=== PATIENT | female | born 1950 | race Caucasian/White ===

== ENCOUNTER 2018-12-06 21:17 | Emergency (ER) | payer MEDICARE ==
[~2018-12-06] VITALS: Ht 165.1 cm; Wt 88.2 kg
[2018-12-06] MEDS ORDERED: dexamethasone sod phosphate 10mg/ml inj IV STA (21:52)
[2018-12-06] MEDS ORDERED: normal saline 1000ML IV soln IVB ONE (21:55)
[2018-12-06 22:09] LABS: BASOPHILS # (AUTO) 0.1 X10'3 (0-0.2); BASOPHILS % (AUTO) 0.6 % (0-1); EOSINOPHILS # (AUTO) 0.2 X10'3 (0-0.9); EOSINOPHILS % (AUTO) 2.5 % (0-6); HEMATOCRIT 40.6 % (35.0-45.0); HEMOGLOBIN 13.9 g/dl (12.0-16.0); LYMPHOCYTES # (AUTO) 3.2 X10'3 (1.1-4.8); LYMPHOCYTES % (AUTO) 34.4 % (21-51); MEAN CORPUSCULAR HEMOGLOBIN 33.8 PG (27.0-31.0); MEAN CORPUSCULAR HGB CONC 34.2 g/dL (33.0-36.5); MEAN CORPUSCULAR VOLUME 98.9 FL (78-98); MEAN PLATELET VOLUME 9.2 FL (7.4-10.4); MONOCYTES # (AUTO) 0.7 X10'3 (0-0.9); NEUTROPHILS # (AUTO) 5.1 X10'3 (1.8-7.7); NEUTROPHILS % (AUTO) 54.5 % (42-75); PLATELET COUNT 222 X10'3 (140-440); RED BLOOD COUNT 4.11 X10'6 (4.20-5.60); RED CELL DISTRIBUTION WIDTH 12.1 % (11.5-14.5); WHITE BLOOD COUNT 9.3 X10'3 (4.5-11.0)
[2018-12-06 22:25] LABS: ALANINE AMINOTRANSFERASE 25 U/L (12-78); ALBUMIN 3.6 G/DL (3.4-5.0); ALBUMIN/GLOBULIN RATIO 0.9 (1.1-1.5); ALKALINE PHOSPHATASE 71 IU/L (46-116); ANION GAP 9 (8-16); ASPARTATE AMINO TRANSFERASE 15 U/L (10-37); BILIRUBIN,TOTAL 0.2 MG/DL (0.1-1.0); BLOOD UREA NITROGEN 12 MG/DL (7-18); BUN/CREATININE RATIO 16.7 (6.6-38.0); CALCIUM 8.9 MG/DL (8.5-10.1); CHLORIDE 102 MMOL/L (99-107); CREATININE 0.72 MG/DL (0.40-0.90); GLUCOSE 130 MG/DL (70-104); POTASSIUM 3.5 MMOL/L (3.5-5.1); SODIUM 139 MMOL/L (135-145); TOTAL CARBON DIOXIDE 27.7 MMOL/L (24-32); TOTAL PROTEIN 7.4 G/DL (6.4-8.2); eGFR 81 ML/MIN
[2018-12-06] MEDS ORDERED: iohexol 300mg/ml 100ml inj. ONE (22:45)
--- NOTE | 2018-12-07 00:19 | NUR ---
[employer] flight crew at bedside for transfer. Report given to flight medic Simran.
[2018-12-07 00:25] VITALS: BP 122/79
== END 2018-12-07 00:33 | disposition short-term general hospital (02) ==
LOC: ER 21:17
DX: R22.1 Localized swelling, mass and lump, neck (principal); C32.9 Malignant neoplasm of larynx, unspecified; R06.03 Acute respiratory distress; F17.210 Nicotine dependence, cigarettes, uncomplicated; G89.29 Other chronic pain; Z88.5 Allergy status to narcotic agent; R06.00 Dyspnea, unspecified
CPT/HCPCS: 36415; 70491; 80053; 85025; 93005; 96374; 99285; J1100; J7030; Q9967; 96361

== ENCOUNTER 2019-03-23 17:19 | Emergency (ER) | payer MEDICARE ==
[~2019-03-23] VITALS: Ht 165.1 cm; Wt 91.0 kg
--- NOTE | 2019-03-23 17:34 | NUR ---
dr george was informed about pt recent procedure transesophageal voice procedure done at [facility] now pt unable to eat drink and cough alot as per rn fe who triage the pt ,rt paged for the pt .
--- NOTE | 2019-03-23 17:40 | NUR ---
rt at bedside with dr george.
[2019-03-23] MEDS ORDERED: normal saline 1000ML IV soln IVB ONE (18:45)
[2019-03-23] MEDS ORDERED: DOXY100C43 PO (19:16)
[2019-03-23 19:49] VITALS: BP 112/86
== END 2019-03-23 19:51 | disposition home or self-care (01) ==
LOC: ER 17:20
DX: T85.591A Other mechanical complication of esophageal anti-reflux device, initial encounter (principal); G89.29 Other chronic pain; E86.0 Dehydration; Z88.5 Allergy status to narcotic agent; Z79.899 Other long term (current) drug therapy; Y83.8 Other surgical procedures as the cause of abnormal reaction of the patient, or of later complication, without mention of misadventure at the time of the procedure; Y92.89 Other specified places as the place of occurrence of the external cause
CPT/HCPCS: 99283; J7030

== ENCOUNTER 2019-05-16 00:42 | Emergency (ER) | payer MEDICARE ==
[~2019-05-16] VITALS: Ht 165.1 cm; Wt 100.0 kg
--- NOTE | 2019-05-16 01:12 | NUR ---
DR OBRIEN AT BEDSIDE TO EVAL PT, PT IS RESTING QUIETLY, NO RESP DISTRESS
--- NOTE | 2019-05-16 01:31 | NUR ---
DR OBRIEN TO CONSULT WITH ENT AT [facility]
[2019-05-16] MEDS ORDERED: LEVO750T21 PO (02:27)
[2019-05-16 02:40] VITALS: BP 117/68
== END 2019-05-16 02:38 | disposition home or self-care (01) ==
LOC: ER 00:43
DX: J18.9 Pneumonia, unspecified organism (principal); G89.29 Other chronic pain; Z90.02 Acquired absence of larynx; Z88.5 Allergy status to narcotic agent
CPT/HCPCS: 74022; 99283

== ENCOUNTER 2025-03-05 15:05 | Inpatient (IN) | payer MEDICARE ==
[~2025-03-05] VITALS: Ht 170.2 cm; Wt 86.0 kg
--- NOTE | 2025-03-05 15:18 | Physician Documentation ---
History of Present Illness General Stated Complaint: WEAKNESS Time Seen by MD: 15:17 Primary Medical Doctor: Saira Hernandez History of Present Illness Initial Comments The patient is a 74-year-old female with a history of a trach who was brought in from home for weakness dyspnea and green sputum coming from her trach. The patient states she has been weak over the last 24 hours. The patient is denying any history of GI bleed. She denies any fevers or chills. She denies any abdominal pain. Patient was brought in by EMS and found to be hypoxic in the field. Patient has a history of hypertension and diabetes. The patient had a history of throat cancer and had a trach placed in 2019. Medication Reconciliation Allergies: Coded Allergies: codeine (Verified Allergy, Severe, 03/05/25) Miscellaneous Medications Home Med List (No Home Medications), (Reported) Past Medical History Past Medical History: Chronic Pain, *CANCER* Past Surgical History: no surgical history Alcohol Use: None Drug Use: none Lives In: Home Review of Systems All Other Systems at this time: Reviewed and Negative Physical Exam Physical Exam Physical Exam VITALS: Reviewed and as above. GENERAL: Alert, mild respiratory distress pale chronically ill-appearing HEENT: Normocephalic, atraumatic, PERRL, EOMI, dry mucosa, no erythema the patient has a tracheal stoma the stoma site is clean with no surrounding erythema warmth or swelling RESPIRATORY: Diminished breath sounds in the right side with crackles, mild respiratory distress. CHEST: No accessory muscle use, no retractions CV: Tachycardic irregularly irregular, rhythm, no edema, no murmur, No: JVD GI: Soft, non-tender, bowels sounds present, no rebound, guarding, or rigidity BACK: No CVA tenderness, or swelling MUSCULOSKELETAL: No deformities, 2+ pitting edema bilaterally SKIN: Warm and dry, no rash pale NEURO: Oriented x4, No motor or sensory deficit PSYCH: Normal mood and affect, no agitation Progress Results/Orders Results/Orders Orders - OHLMICHELE HOGAN MD Culture Blood (03/05/25 15:26) Chest,Single View (03/05/25 15:26) Transfusion Informed Consent (03/05/25 15:43) Potassium Cl Sr Tablet (K-Dur Tablet) (03/05/25 15:55) Potassium Cl Sr Tablet (K-Dur Tablet) (03/05/25 15:55) Magnesium Cl Er Tablet (Slow-Mag Tablet) (03/05/25 15:55) Magnesium Sulf-Water 2g/50ml (Magnesium (03/05/25 15:55) Magnesium Sulf-Water 4g/100ml (Magnesium (03/05/25 15:55) Potassium Cl 40meq/1/2ns 520ml ([place] (03/05/25 15:55) K And/Or Mag Replacement (K And/Or Mag R (03/05/25 20:00) Transfusion Informed Consent (03/05/25 15:58) Completed Orders - OHLFS,MICHELE Powers MD Electrocardiogram (03/05/25 15:26) Cbc/Diff (03/05/25 15:) MG (03/05/25 15:26) Chest,Single View (03/05/25 15:26) Procalcitonin (03/05/25 15:26) BMP (03/05/25 15:26) Lacticsepsis (03/05/25 15:26) Normal Saline 1000ml (0.9% Sodium Chlori (03/05/25 15:30) Type And Screen (03/05/25 15:43) Normal Saline 1000ml (0.9% Sodium Chlori (03/05/25 15:50) Lrpc - No Active Bleeding (03/05/25 15:58) Hs Troponin I W Calculations (03/05/25 16:08) Hs Troponin I W Calculations (03/05/25 18:08) Hs Troponin I W Calculations (03/05/25 19:08) Vancomycin*Pharmacy To Dose* (Vancomycin (03/05/25 16:10) Cefepime 1gm In D5w 50ml (Cefepime 1gm/D (03/05/25 16:10) Vancomycin/H2o 1.5g/300ml Pb (Vancomycin (03/05/25 16:20) PBNP (03/05/25 15:21) PHOS (03/05/25 15:21) Ua W/Microscopic, Cult If Ind (03/05/25 21:20) Vital Signs 03/05/25 03/05/25 03/05/25 15:10 15:26 15:31 Temp 98.2 Pulse 106 102 Resp 22 24 22 B/P (MAP) 89/64 104/63 (77) Pulse Ox 96 97 O2 Flow Rate 10.0 10.0 Laboratory Tests Test 03/05/25 15:21 03/05/25 15:59 White Blood Count 8.2 Red Blood Count 2.11 L Hemoglobin 6.6 *L Hematocrit 19.0 *L Mean Corpuscular Volume 89.8 Mean Corpuscular Hemoglobin 31.0 Mean Corpuscular Hemoglobin Concent 34.6 Red Cell Distribution Width 15.1 H Platelet Count 658 H Mean Platelet Volume 7.1 L Neutrophils (%) (Auto) 81.9 H Lymphocytes (%) (Auto) 12.8 L Monocytes (%) (Auto) 4.9 Eosinophils (%) (Auto) 0.1 Basophils (%) (Auto) 0.3 Neutrophils # (Auto) 6.8 Lymphocytes # (Auto) 1.1 Monocytes # (Auto) 0.4 Eosinophils # (Auto) 0.0 Basophils # (Auto) 0.0 CBC Comment Platelet Estimate Increased Red Blood Cell Morphology Perf Hypochromasia 3+ Poikilocytosis 1+ Basophilic Stippling Anisocytosis 2+ Microcytosis 1+ Sodium Level 150 H Potassium Level 1.3 *L Chloride Level 102 Carbon Dioxide Level 35.2 H Anion Gap 13 Blood Urea Nitrogen 31 H Creatinine 2.76 H Estimated GFR/1.73 m2 17 BUN/Creatinine Ratio 11.2 Glucose Level 121 H Calcium Level 7.0 L Phosphorus Level 2.8 Magnesium Level 0.8 *L Troponin I High Sensitivity 52 *H Pro-B-Type Natriuretic Peptide 35882 H Albumin 1.5 L Procalcitonin 0.28 Chemistry Comments Lactic Acid Level 1.1 Microbiology Date/Time Source Procedure Growth Status 03/05/25 15:59 Blood Arm Right Blood Culture - Preliminary NO GROWTH AFTER 1 DAY Resulted Medical Decision Making Findings The patient is a chronically ill-appearing 74-year-old female who came into the emergency department with a complaint of weakness. The patient was found to be significantly anemic and edematous. The patient's electrolytes are extremely abnormal with a extremely low potassium of 1.3 and an extremely low magnesium of 0.8. The patient was consented for a transfusion and she was typed and crossed for 1 unit of packed red blood cells. The patient has been monitored closely utilizing the monitoring coordinator which demonstrated atrial fibrillation which appears to be a new finding for this patient. The patient's potassium and magnesium are being repleted. The patient's prior hospitalizations have been reviewed the patient's pulse oximetry has been interpreted as normal and adequate. The patient has been discussed with the incidents of care physician. The patient will be admitted to the intensive care. The patient additionally presents with green sputum from her trachea she has what appears to have bilateral opacities in the lung harmon and clinical pneumonia. She was been treated with cefepime and vancomycin. She also has what appears to be new renal failure and she has been treated with gentle IV hydration. Departure Admitted to Inpatient Unit: yes, to hospitalist Impression: Primary Impression: Hypokalemia Additional Impressions: Anemia Qualified Codes: D64.9 - Anemia, unspecified Acute kidney injury Pneumonia Qualified Codes: J18.9 - Pneumonia, unspecified organism Referrals: NO PRIMARY CARE PROVIDER (PCP) Signature Scribe Signature: no scribe Attestation: The note accurately reflects work and decisions made by me.Michele Hough MD 03/07/25 10:02 MICHELE HOUGH MD Mar 05, 2025 15:18
[2025-03-05] MEDS: normal saline 1000ML IV soln IVB ONE ×2 (15:34→16:19)
[2025-03-05 15:37] LABS: MEAN PLATELET VOLUME 7.1 FL (7.4-10.4); RED CELL DISTRIBUTION WIDTH 15.1 % (11.5-14.5)
--- NOTE | 2025-03-05 15:43 | ELECTROCARDIOGRAPH REPORT ---
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
[2025-03-05 15:51] LABS: CREATININE 2.76 MG/DL (0.40-0.90); TOTAL CARBON DIOXIDE 35.2 MMOL/L (24-32); eCRCL 18 ML/MIN; eGFR 17 ML/MIN
[2025-03-05] MEDS ORDERED: magnesium sulf-water 2g/50mL 50 ML IV PRN (15:55)
[2025-03-05] MEDS ORDERED: magnesium Cl slow-release 64mg tablet PO PRN (15:55)
[2025-03-05] MEDS ORDERED: potassium Cl 20 mEq SR tablet PO PRN ×2 (15:55)
--- NOTE | 2025-03-05 15:58 | RADIOLOGY REPORT ---
CHEST RADIOGRAPH Indication: SEPSIS Technique: Single frontal view of the chest was obtained COMPARISON: None FINDINGS: Lines and Tubes: None Lungs: Congestion Pleura: Small right pleural effusion No pneumothorax. Cardiomediastinal contours: Cardiomegaly Bones: Unremarkable IMPRESSION: Increased interstital prominence. This may represent pulmonary vascular congestion and/or viral pneumonia. Small right pleural effusion. Clinical correlation advised.
[2025-03-05 16:14] LABS: PLATELET ESTIMATE INCREASED
[2025-03-05] MEDS: magnesium sulf-water 4G/100mL 100 ML IV PRN (16:18)
[2025-03-05] MEDS: potassium Cl 40MEQ/1/2NS 520ml 520 ML IV PRN (16:24)
[2025-03-05] MEDS: cefepime 1GM in D5W 50mL 50 ML IV ONE (16:24)
[2025-03-05] MEDS: VANCOMYCIN/WATER FOR INJ (PEG) 1.5GM/300 ML IVPB IV ONE (16:42)
[2025-03-05 16:43] LABS: PHOSPHORUS 2.8 MG/DL (2.3-4.5); PRO BRAIN NATRIURETIC PEPTIDE 12917 PG/ML (0-125)
[2025-03-05] MEDS ORDERED: ondansetron/PF 4mg/2ml inj IV PRN (17:00)
[2025-03-05] MEDS: ringers solution, lacted 1,000 ML IV SCH (17:00)
[2025-03-05] MEDS ORDERED: magnesium hydroxide 30ml (MOM) UD suspension PO PRN (17:00)
[2025-03-05] MEDS ORDERED: morphine 4 MG/ML inj SYRINge IV PRN ×2 (17:00)
--- NOTE | 2025-03-05 17:08 | HISTORY AND PHYSICAL ---
History of Present Illness End CC ~ Admission Diagnosis:.: PNA History of Present Illness H/O Throat CA with previous Tracheostomy c/o weakness. Increased yellowish sputum noticed from trach site. Pt anemic however no obvious source of bleeding noticed. Severe Hypokalemia/Hypomagnesemia. Allergies: Coded Allergies: codeine (Verified Allergy, Severe, 03/05/25) Home Medications Home Medications Active Past Medical History Past Medical History: Chronic Pain, *CANCER* Past Surgical History Past Surgical History: no surgical history Past Social History Alcohol Use: None Drug Use: None Lives In: Home Advance Care Planning Advanced Care plannin - 30 Minutes Review of Systems All Other Systems at this time: Reviewed and Negative Unable to obtain complete ROS: other (Non-verbal) Physical Exam Last Vital Signs recorded: Temperature: 98.2, Source: Oral, Heart Rate: 102, Respiratory Rate: 22, BP: 104/63, Pulse Oximetry: 97, Weight: 69.000 General Appearance: mild distress EENT: PERRL/EOMI Neck: supple Respiratory: decreased breath sounds, rhonchi Cardiovascular: regular rate, rhythm Peripheral Pulses: 1+ carotid (R), 1+ carotid (L), 1+ radial (R), 1+ radial (L), 1+ femoral (R), 1+ femoral (L), 1+ dorsalis pedis (R), 1+ dorsalis pedis (L), 1+ posterior tib (R), 1+ posterior tib (L), 1+ other Gastrointestinal: bowels sounds present Extremities: edema Neurologic: unable to test Skin: pallor Results Diagram Lab Result Diagram: 03/05/25 1521 03/05/25 1521 Assessment/Plan 1-Sepsis due to Bacterial/Aspiration PNA -Broad spectrum abx -Bronchoscopy -F/U cultures 2-Renal Failure -F/U BMP -Avoid nephrotoxic drugs 3-Anemia -F/U Hgb Devin Barton CC time 35min IRAIDA BARTON MD Mar 05, 2025 17:08
[2025-03-05 17:30] VITALS: BP 106/75; PULSE 109; RESP 24; TEMP 99.4
[2025-03-05 17:52] VITALS: BP 98/57; PULSE 95; RESP 20; TEMP 99.4
[2025-03-05 18:09] VITALS: BP 102/59; PULSE 92; RESP 18; TEMP 99.4
[2025-03-05 18:41] VITALS: BP 122/63; PULSE 87; RESP 17; TEMP 98.1
[2025-03-05 20:00] VITALS: BP 99/47; PULSE 100; RESP 21; TEMP 98.1
[2025-03-05] MEDS: K and/or MAG REPLACEMENT MC SCH (20:00)
[2025-03-05 21:46] LABS: LEUKOCYTE ESTERASE ,URINE SMALL (Neg); NITRITES, URINE NEGATIVE (Neg); OCCULT BLOOD,URINE LARGE (Neg)
[2025-03-05 21:53] LABS: UA COLLECTION TYPE FOLEY CATH
[2025-03-05 21:56] LABS: HYALINE CASTS 0-3 /LPF (NEGATIVE); SQUAMOUS EPITHELIAL CELL,UR FEW /LPF (FEW)
[2025-03-05] MEDS: NORepinephrine 8mg/ 250ml NS 250 ML IV SCH (23:40)
[2025-03-05] MEDS: heparin, porcine 5000 units/ml vial SQ SCH (23:59)
[2025-03-05] MEDS: piperacillin/tazo 3.375gm/50ml 50 ML IV SCH (23:59)
[2025-03-06] VITALS (9 sets, daily range): BP systolic 98–122; BP diastolic 48–71; PULSE 75–95; RESP 16–26; TEMP 97.8–99; O2SAT 95
[2025-03-06 02:05] LABS: MEAN PLATELET VOLUME 7.3 FL (7.4-10.4)
[2025-03-06 02:06] LABS: RED CELL DISTRIBUTION WIDTH 15.3 % (11.5-14.5)
[2025-03-06 02:18] LABS: CREATININE 2.44 MG/DL (0.40-0.90); PHOSPHORUS 3.8 MG/DL (2.3-4.5); TOTAL CARBON DIOXIDE 34.2 MMOL/L (24-32); eCRCL 20 ML/MIN; eGFR 19 ML/MIN
[2025-03-06 02:52] LABS: PRO BRAIN NATRIURETIC PEPTIDE 10774 PG/ML (0-125)
[2025-03-06 03:30] LABS: APTT 28 SECONDS (22-32); INR 1.2 INR
--- NOTE | 2025-03-06 04:04 | Physician Documentation ---
Procedures Procedures Central line insertion Additional Procedures Procedure Note Central Line: Right femoral Performed by: Juanpablo Rea DO Authorized by:Juanpablo Rea DO Consent: Verbal consent obtained. The procedure was performed in an emergent situation. Risks and benefits: risks, benefits and alternatives were discussed Consent given by: patient Patient understanding: patient states understanding of the procedure being performed Patient consent: the patient's understanding of the procedure matches consent given Procedure consent: procedure consent matches procedure scheduled Patient identity confirmed: verbally with patient and arm band Time out: Immediately prior to procedure a "time out" was called to verify the correct patient, procedure, equipment, manager decision support and site/side marked as required. Indications: vascular access and central pressure monitoring Anesthesia: local infiltration Local anesthetic: lidocaine 1% with epinephrine Anesthetic total: 4 ml Preparation: skin prepped with 2% chlorhexidine Skin prep agent dried: skin prep agent completely dried prior to procedure Sterile barriers: all five maximum sterile barriers used - cap, mask, sterile gown, sterile gloves, and large sterile sheet Hand hygiene: hand hygiene performed prior to central venous catheter insertion Location details: right internal jugular Patient position: Trendelenburg Catheter type: Quadruple lumen Pre-procedure: landmarks identified Ultrasound guidance: yes Number of attempts: 1 Successful placement: yes Post-procedure: line sutured and dressing applied Assessment: blood return through all parts, free fluid flow, placement verified by x-ray and no pneumothorax on x-ray Patient tolerance: Patient tolerated the procedure well with no immediate complications. Additional Comment Additional Comment Central line was requested by the dobby looms pegger, Dr. Franklin. Signature Scribe Signature: No scribe Attestation: Date: Mar 06, 2025 Time: 04:04 This note accurately reflects clinical decisions, work performed by myself, DO MASTER Tan NICHOLAS M DO Mar 06, 2025 04:04
[2025-03-06] MEDS ORDERED: potassium Cl 20 mEq SR tablet PO STA (04:36)
[2025-03-06] MEDS: POTASSIUM CHLORIDE 20 MEQ/15 ML oral solution PO STA (05:10)
[2025-03-06 05:35] LABS: MEAN PLATELET VOLUME 7.1 FL (7.4-10.4); RED CELL DISTRIBUTION WIDTH 16.0 % (11.5-14.5)
--- NOTE | 2025-03-06 05:48 | RADIOLOGY REPORT ---
EXAM: DI CHEST,SINGLE VIEW HISTORY: infiltrate COMPARISON: DI CHEST,SINGLE VIEW on DOS: 03/05/25 TECHNIQUE: Portable upright AP view of the chest was performed. FINDINGS: There is complete opacification of the right hemithorax, with worsening compared with chest x-ray performed 1 day earlier. There is mild interstitial prominence in the left lung. No pneumothorax. The right heart border is obscured. The aortic arch is calcific. There are surgical clips in the base of the neck. IMPRESSION: 1. Complete opacification of the right hemithorax likely due to a combination of lung consolidation and pleural effusion. This may be better characterized with contrasted CT scan of the chest. 2. Mild interstitial prominence in the left lung, stable.
[2025-03-06 05:51] LABS: CREATININE 2.35 MG/DL (0.40-0.90); TOTAL CARBON DIOXIDE 33.4 MMOL/L (24-32); eCRCL 21 ML/MIN; eGFR 20 ML/MIN
[2025-03-06] MEDS: calcium gluconate inj. 2 GM in normal saline 100ml IV soln 100 ML IV ONE ×2 (06:00→06:28)
[2025-03-06] MEDS: CALCIUM GLUC 1gm/50ml NACL,iso 50 ML IV ONE ×2 (06:27→06:28)
[2025-03-06] MEDS: ringers solution, lacted 1,000 ML IV ONE ×2 (06:28→12:20)
[2025-03-06] MEDS ORDERED: CALCIUM GLUC 1gm/50ml NACL,iso 50 ML IV SCH (06:48)
--- NOTE | 2025-03-06 07:03 | PROGRESS NOTE ---
Progress Note Dictate Providers to CC ~ Progress Note: Ongoing PRBC transfusion.Pressors initiated for few hours, now off Central Line/PICC still needed: N\A Perez Indications Met/Not Met: F/C Indications Not Met Antibiotic Ordered?: Yes Subjective Subjective Comfortable Objective Vitals Vital Signs Date Time Temp Pulse Resp B/P (MAP) Pulse Ox O2 Delivery O2 Flow Rate FiO2 03/06/25 06:56 98.7 75 20 110/67 03/06/25 04:32 94 10.0 Lab Results: 03/06/25 0517 03/06/25516 Objective Heart: S1-2 reg Lungs: Decrease BS bases R>L Abdomen: soft, non-tender, BS (+) Ext: Edema Neuro: awake Coagulation Studies Laboratory Tests Test 03/06/25 03:06 Prothrombin Time 12.5 SECONDS (9.0-12.0) H INR International Normalized Ratio 1.2 INR Activated Partial Thromboplast Time 28 SECONDS (22-32) Coagulation Comments Problem\Assessment\Plan Additional Plan 1-Sepsis due to Bacterial/Aspiration PNA + UTI -Broad spectrum abx -Bronchoscopy -F/U cultures 2-Renal Failure -F/U BMP -Avoid nephrotoxic drugs 3-Anemia -F/U Hgb 4-PAF -Amiodarone ongoing A Oralia Sepsis Screening Reassessment Date: Mar 06, 2025 IRAIDA HALL MD Mar 06, 2025 07:03
[2025-03-06] MEDS ORDERED: pantoprazole 40mg Tablet.DR PO SCH (07:30)
[2025-03-06] MEDS: pantoprazole 40MG/NS 100ML BAG 100 ML IV SCH (08:55)
[2025-03-06 09:31] LABS: MEAN PLATELET VOLUME 7.1 FL (7.4-10.4); RED CELL DISTRIBUTION WIDTH 16.3 % (11.5-14.5)
[2025-03-06 09:36] LABS: CREATININE 2.32 MG/DL (0.40-0.90); TOTAL CARBON DIOXIDE 30.5 MMOL/L (24-32); eCRCL 21 ML/MIN; eGFR 21 ML/MIN
[2025-03-06] MEDS: Potassium Cl inj 40 MEQ in sodium chloride 0.45% 500ml 500 ML IV ONE ×2 (09:45→15:52)
[2025-03-06] MEDS ORDERED: POTASSIUM CHLORIDE 20 MEQ/15 ML oral solution PO SCH (09:45)
[2025-03-06] MEDS: POTASSIUM CHLORIDE 20 MEQ/15 ML oral solution PO ONE ×2 (10:16→15:42)
[2025-03-06] MEDS: magnesium sulf-water 4G/100mL 100 ML IV ONE (10:48)
[2025-03-06] MEDS ORDERED: NO HOME MEDS (10:58)
[2025-03-06] MEDS: fentaNYL/PF 50MCG/1 ML 2ML syringe IV ONE (11:19)
[2025-03-06] MEDS: midazolam 1 mg/ML 2ml injection IV ONE (11:20)
[2025-03-06] MEDS: LIDOCAINE 4% (40MG/ML) topical solution 50ml **BRONCH ONLY ONE (11:58)
--- NOTE | 2025-03-06 12:10 | PROCEDURE NOTE CC ---
Procedure Note CC Providers to CC ~ Procedure Name: Bronchoscopy Description: Indication: R-side atelectasis Sedation: Versed 2mgr + Fentanyl 25mcgr Description: Bronchoscope introduced via Trach stoma. L-side with minimal thick secretion and nl mucosa R-side with thick yellowish secretion. BAL performed and sample sent to lab Complication: None Sepsis Screening Reassessment Date: Mar 06, 2025 IRAIDA HALL MD Mar 06, 2025 12:10
[2025-03-06] MEDS ORDERED: Potassium Cl inj 40 MEQ in normal saline 500ml IV soln 500 ML IV ONE (15:10)
[2025-03-06] MEDS ORDERED: Potassium Cl inj 40 MEQ in sodium chloride 0.45% 500ml 500 ML IV ONE (15:28)
[2025-03-06 15:59] LABS: PHOSPHORUS 3.5 MG/DL (2.3-4.5)
--- NOTE | 2025-03-06 19:19 | PROGRESS NOTE ---
Daily Progress Note Providers to CC ~ Antibiotic Timeout Antibiotic Ordered?: Yes Subjective Patient is step-down patient from Dr. Barton for PCU today . Patient has severe anemia, hypokalemia, hypomagnesemia mildly elevated troponin BNP 1 0774. Patient was on norepinephrine drip in ER 6. Dr. Fitzpatrick did bronchoscopy today. Patient is admitted for sepsis due to bacterial/aspiration pneumonia plus UTI currently on IV antibiotics. Patient also has acute renal failure, anemia in paroxysmal atrial fibrillation. Objective Vital Signs Date Time Temp Pulse Resp B/P (MAP) Pulse Ox O2 Delivery O2 Flow Rate FiO2 03/06/25 18:20 88 20 120/71 (87) 98 11.0 03/06/25 17:58 97.0 03/06/25 17:46 Cool/Heated Aerosol Mist+ 100 Result Diagram: 03/06/25 0914 03/06/25 1427 General-patient not in any acute distress, awake chronically ill-appearing, responded well to verbal commands HEENT-atraumatic normocephalic, neck supple without elevated JVD, no thyromegaly or carotid bruit. No lymphadenopathy bilaterally.no erythema the patient has a tracheal stoma the stoma site is clean with no surrounding erythema warmth or swelling Eyes-no icterus or pallor seen in eyes Chest-coarse breath sounds to auscultation bilaterally, breathing nonlabored no tachypnea, Heart-S1-S2 normal, regular heart rate no murmur Abdomen bowel sounds positive on auscultation, soft nondistended nontender no guarding, no rigidity Skin no active skin rash, bruise present over right arm Neurology-grossly intact, nonfocal alert awake oriented Extremity- 1 plus pedal edema , not able to move all 4 extremities/ambulate Psychiatry - patient is not confused or agitated cooperated during physical examination Coagulation Studies Laboratory Tests Test 03/06/25 03:06 Prothrombin Time 12.5 SECONDS (9.0-12.0) H INR International Normalized Ratio 1.2 INR Activated Partial Thromboplast Time 28 SECONDS (22-32) Coagulation Comments Problem\Assessment\Plan Patient is 74-year-old female with history of Chronic Pain, history of hypertension and diabetes.*CANCER*History of laryngectomy. patient had a history of throat cancer and had a trach placed in 2019. As per ER record. history of a trach who was brought in from home for weakness dyspnea and green sputum coming from her trach. The patient states she has been weak over the last 24 hours. Patient is step-down patient from Dr. Barton for PCU today . Patient has severe anemia, hypokalemia, hypomagnesemia mildly elevated troponin BNP 1 0774. Patient was on norepinephrine drip in ER 6. Dr. Fitzpatrick did bronchoscopy today. Patient is admitted for sepsis due to bacterial/aspiration pneumonia plus UTI currently on IV antibiotics. Patient also has acute renal failure, anemia in paroxysmal atrial fibrillation. All labs and diagnostic and care plan workup reviewed. We will continue to monitor patient's labs and vitals closely . Further management depending on response to treatment . As per Dr. Fitzpatrick tangled yarn worker team we will continue to follow the patient in PCU. I will continue to follow patient in a.m. Date of Service: Mar 06, 2025 Billing Provider: BAL GALAN MD Common Visit Codes: [id number] INP/OBS CARE(MOD) BAL GALAN MD Mar 06, 2025 19:19
[2025-03-06 20:19] LABS: % IRON SATURATION 34 % (11-46)
[2025-03-06 23:47] LABS: MEAN PLATELET VOLUME 7.5 FL (7.4-10.4); RED CELL DISTRIBUTION WIDTH 17.5 % (11.5-14.5)
[2025-03-07] VITALS (35 sets, daily range): BP systolic 62–138; BP diastolic 33–69; PULSE 62–130; RESP 11–26; O2SAT 84–100
[2025-03-07] MEDS: albuterol 2.5 MG/3 ML nebule NEB SCH ×2 (08:03→11:26)
--- NOTE | 2025-03-07 08:52 | RADIOLOGY REPORT ---
CHEST RADIOGRAPH Indication: infiltrate Technique: Single frontal view of the chest was obtained COMPARISON: DI CHEST,SINGLE VIEW on DOS: 03/06/25, DI CHEST,SINGLE VIEW on DOS: 03/05/25 FINDINGS: Lines and Tubes: None Lungs: Increased multifocal airspace disease in the left lung. Improved aeration of the right lung. Pleura: Moderate right pleural effusion. No pneumothorax. Cardiomediastinal contours: Unremarkable Bones: Unremarkable IMPRESSION: Increased multifocal airspace disease in the left lung. Improved aeration of the right lung. Moderate right pleural effusion.
[2025-03-07] MEDS: albuterol 2.5 MG/3 ML nebule NEB PRN (09:27)
[2025-03-07] MEDS ORDERED: vancomycin/NS 1 GM ADD-VANTAGE 250 ML IV ONE (10:00)
[2025-03-07] MEDS: midazolam 1 mg/ML 2ml injection IV ONE (11:19)
[2025-03-07] MEDS: fentaNYL/PF 50MCG/1 ML 2ML syringe IV ONE (11:19)
[2025-03-07] MEDS ORDERED: fentaNYL/PF 50MCG/1 ML 2ML syringe IV PRN (11:20)
[2025-03-07 11:21] LABS: MEAN PLATELET VOLUME 7.2 FL (7.4-10.4); RED CELL DISTRIBUTION WIDTH 17.7 % (11.5-14.5)
[2025-03-07] MEDS: fentaNYL/PF 50MCG/1 ML 2ML syringe ONE (11:21)
[2025-03-07] MEDS: midazolam 1 mg/ML 2ml injection ONE (11:21)
[2025-03-07 11:37] LABS: CREATININE 2.26 MG/DL (0.40-0.90); PHOSPHORUS 4.3 MG/DL (2.3-4.5); TOTAL CARBON DIOXIDE 33.0 MMOL/L (24-32); eCRCL 22 ML/MIN; eGFR 21 ML/MIN
[2025-03-07] MEDS: propofol 1000mg/100ml bottle 100 ML IV SCH (11:39)
[2025-03-07] MEDS: FENTANYL-0.9 % NACL/PF 100 ML IV SCH (11:43)
[2025-03-07 11:47] LABS: ABG BASE EXCESS 2.8 mmol/L (-2.0-3.0); ABG HCO3 28.6 mmol/L (21.0-28.0); ABG OXYGEN SATURATION 100.0 % (94.0-98.0); ABG PCO2 (T) 49.9 mmHg (32.0-45.0); ABG PH (T) 7.373 (7.350-7.450); ABG PO2 (T) 217.8 mmHg (83.0-108.0); ALLEN'S TEST POSITIVE; FCOHb 1.6 % (0.5-1.5); FHHb 0.0 % (0.0-5.0); FIO2 100.0 mmHg/%; FMetHb 0.3 % (0.0-1.5); FO2Hb 98.1 % (94.0-98.0); MODE VENT - AC/PRVC; PATIENT TEMPERATURE 36.5; PEEP 5 cm H2O; RESPIRATORY RATE 15 b/min; TIDAL VOLUME 400 mL; TOTAL HEMOGLOBIN 7.4 G/dl (12.0-16.0)
[2025-03-07] MEDS: levoFLOXACIN-Levaquin 750MG/D5 150 ML IV STA (12:00)
[2025-03-07] MEDS: ringers solution, lacted 1,000 ML IV ONE ×2 (12:01→12:32)
[2025-03-07] MEDS: potassium Cl 40MEQ/270ML bag 270 ML IV PRN (12:40)
[2025-03-07] MEDS: NORepinephrine 8mg/ 250ml NS 250 ML IV SCH (12:55)
[2025-03-07] MEDS: NORepinephrine 8mg/ 250ml NS 250 ML IV ONE (12:56)
[2025-03-07] MEDS ORDERED: LISI5TAB22 PO (13:26)
[2025-03-07] MEDS ORDERED: ROSU40TA89 PO (13:26)
[2025-03-07] MEDS ORDERED: METF-438 PO (13:26)
[2025-03-07] MEDS ORDERED: CETI10TA14 PO (13:26)
[2025-03-07] MEDS: VANCOMYCIN/WATER FOR INJ (PEG) 1.5GM/300 ML IVPB IV ONE (13:29)
--- NOTE | 2025-03-07 16:32 | RADIOLOGY REPORT ---
Indication: Pneumonia,pleural effusion Technique: CT axial images of the chest are obtained without contrast. Coronal and sagittal reformats were obtained. Radiation Dose Information: CTDI volume is 17.6 mGy. Dose-length product is 662 mGy*cm Comparison: None FINDINGS: Tracheostomy tube. Obstruction/ narrowing of the right lower lobe bronchus with possible stent. No pneumothorax. Diffuse bilateral pulmonary airspace consolidation and ground-glass disease. Pulmonary interlobular septal thickening. Moderate bilateral pleural effusions. Right pleural effusion appears loculated. Heart size at the upper limits of normal. Prominent mediastinal and hilar lymph nodes, suboptimally characterized on noncontrast examination. Some of these include pretracheal lymph node measuring 14 mm, subcarinal lymph node measuring 15 mm. Right axillary lymph node measuring 17 mm. Left axillary lymph node measuring 13 mm. Postsurgical changes in the supraclavicular / thyroid bed region. There is portal venous gas within the left hepatic lobe. Small amount of ascites fluid. There is no acute osseous abnormality. IMPRESSION: Limited evaluation without contrast. Diffuse bilateral pulmonary airspace consolidation and ground-glass disease, likely combination of infection/ pneumonia, edema and aspiration. Interlobular septal thickening consistent with edema. Obstruction of the right lower lobe bronchus with possible stent. Recommend pulmonology consultation to further evaluate. Moderate bilateral pleural effusions. Right pleural effusion appears loculated. Correlate for empyema, malignant etiologies. Mediastinal, axillary lymphadenopathy which can be secondary to infectious, inflammatory, neoplastic etiologies. Portal venous gas in the left hepatic lobe. This could be secondary to ischemia/infectious etiologies of the bowel, postprocedural changes, trauma. Correlate clinically. CT abdomen pelvis can be obtained for further characterization if etiology is unknown. Soft tissue edema/ anasarca. Ascites fluid. Other findings as described.
--- NOTE | 2025-03-07 18:10 | PROGRESS NOTE ---
Daily Progress Note Providers to CC ~ Antibiotic Timeout Antibiotic Ordered?: Yes Subjective Seen in CICU she is lethargic and on mechanical ventilator, not responded to verbal commands . Objective Vital Signs Date Time Temp Pulse Resp B/P (MAP) Pulse Ox O2 Delivery O2 Flow Rate FiO2 03/07/25 17:00 97.9 75 11 102/58 (73) 92 Mechanical Ventilator 50 03/07/25 09:38 9.0 Result Diagram: 03/07/25 1105 03/07/25 1105 General- chronically ill-appearing, not responded to verbal commands , HEENT-atraumatic normocephalic, neck supple currently on mechanical ventilator Eyes-no icterus or pallor seen in eyes Chest-coarse breath sounds to auscultation bilaterally, breathing nonlabored no tachypnea, Heart-S1-S2 normal, regular heart rate no murmur Abdomen bowel sounds positive on auscultation, soft nondistended nontender no guarding, no rigidity Neurology-patient is lethargic not responded to verbal commands Extremity- 1 plus pedal edema , not able to move all 4 extremities Coagulation Studies Laboratory Tests Test 03/06/25 03:06 Prothrombin Time 12.5 SECONDS (9.0-12.0) H INR International Normalized Ratio 1.2 INR Activated Partial Thromboplast Time 28 SECONDS (22-32) Coagulation Comments Problem\Assessment\Plan Patient is 74-year-old female with history of Chronic Pain, history of hypertension and diabetes.*CANCER*History of laryngectomy. patient had a history of throat cancer and had a trach placed in 2019. As per ER record. history of a trach who was brought in from home for weakness dyspnea and green sputum coming from her trach. The patient states she has been weak over the last 24 hours. # Patient is on norepinephrine drip . Dr. Fitzpatrick did bronchoscopy yesterday. Patient is admitted for sepsis due to bacterial/aspiration pneumonia plus UTI currently on IV antibiotics. Patient also has acute renal failure, anemia in paroxysmal atrial fibrillation. # Acute respiratory failure on mechanical ventilator CT chest showed- Diffuse bilateral pulmonary airspace consolidation and ground- glass disease, likely combination of infection/ pneumonia, edema and aspiration. Interlobular septal thickening consistent with edema.Obstruction of the right lower lobe bronchus with possible stent. Moderate bilateral pleural effusions. Right pleural effusion appears loculated. Mediastinal, axillary lymphadenopathy which can be secondary to infectious, inflammatory, neoplastic etiologies. Soft tissue edema/ anasarca. Ascites fluid. Other comorbidities include- Patient has severe anemia, hypokalemia, hypomagnesemia mildly elevated troponin BNP 1 0774. We will continue to monitor patient's labs and vitals closely . All labs and diagnostic and care plan workup reviewed. Further management depending on response to treatment in his recommended by harvesting manager team. I will continue to follow patient in a.m. Date of Service: Mar 07, 2025 Billing Provider: BAL AGLAN MD Common Visit Codes: [id number] INP/OBS CARE(MOD) BAL GALAN MD Mar 07, 2025 18:09
--- NOTE | 2025-03-07 22:41 | PROGRESS NOTE- Residence ---
Progress Note - Resident Providers to CC Resident Creating Document: DOMINIC TERRY SONIA ~ Antibiotic Timeout Antibiotic Ordered?: Yes Subjective Patient seen and examined at the bedside today. Due to her worsening respiratory distress the patient was transferred to the CICU today. We recannulated the patient's tracheal stoma and started her on sedation with fentanyl and propofol. Objective Vital Signs Date Time Temp Pulse Resp B/P (MAP) Pulse Ox O2 Delivery O2 Flow Rate FiO2 03/07/25 21:00 99.1 82 14 91/53 (66) 94 Mechanical Ventilator 50 03/07/25 09:38 9.0 Result Diagram: 03/07/25 1105 03/07/25 1825 General: Recannulated, sedated and put on mechanical ventilation. HEENT: Conjunctiva pink, Sclera clear, Mucus Membranes moist. Tracheostomy in place. Neck: Supple without masses and tenderness. Resp: Coarse breath sounds heard bilaterally. No wheezing heard. Heart: Regular Rate and rhythm, normal S1 and S2 without murmur, rub or gallop. Abdomen: Soft and non tender no organomegaly Extremities: No cyanosis,clubbing or edema. Skin: Warm and Dry. Neurology: Under sedation. Coagulation Studies Laboratory Tests Test 03/06/25 03:06 Prothrombin Time 12.5 SECONDS (9.0-12.0) H INR International Normalized Ratio 1.2 INR Activated Partial Thromboplast Time 28 SECONDS (22-32) Coagulation Comments Assessment Assessment 74 years old female with past medical history of chronic pain, hypertension, diabetes, history of laryngeal cancer status post tracheostomy was admitted in the hospital for evaluation and management of acute hypoxemic respiratory failure most likely secondary to aspiration pneumonia. In view of the patient's worsening respiratory distress the patient is currently transferred to the ICU for further care and management. Plan Plan Acute hypoxemic respiratory failure Aspirational pneumonia Septic shock The patient had to be recannulated in view of her worsening respiratory distress. Started on mechanical ventilation, currently requiring FiO2 of 50%. She has been bringing up a lot of sputum through oropharyngeal suctioning. Sent for cultures. Started the patient on broad-spectrum IV antibiotics-IV vancomycin and Zosyn. Also added levofloxacin for atypical organism coverage. She is requiring norepinephrine to maintain a target blood pressure of greater than 60 mmHg. We will wean as tolerated. Continue albuterol 2.5 mg q.4 hours, Mucomyst inhalation q.4 hours. Continue respiratory evaluation and treatment. LR at 75 mL/hour for hydration and maintenance. Follow up with the sputum and blood cultures. BJ on CKD stage 4 Hypernatremia Hypokalemia Most likely secondary to vasomotor nephropathy Patient has been receiving IV fluids for hydration and maintenance. Her renal function is improving progressively since the time of admission. Replacing potassium as per the protocol. The most likely cause of the patient's hyponatremia is dehydration. We will continue to monitor the patient's electrolytes closely. Severe anemia Most likely secondary to iron-deficiency. Patient received 3 units of PRBC transfusion. Continue close monitoring of the patient's H&H. We will benefit from IV iron infusion once sepsis is resolved. Nutrition Started the patient on tube feeds via NG tube. Consulted the supervisor boilermaking shop. Appreciate recommendations. CODE STATUS: Full code DVT prophylaxis: SCDs GI prophylaxis: IV Protonix Diet: Tube feeds Disposition: Continue management in the intensive care unit. Dominic Terry MD Internal Medicine Resident, PGY-3 Date of Service: Mar 07, 2025 Billing Provider: LAKESHIA YUN MD,DOMINIC MCCULLOUGH, RES Mar 07, 2025 22:41
[2025-03-08] VITALS (46 sets, daily range): BP systolic 79–128; BP diastolic 43–83; PULSE 60–109; RESP 12–20; O2SAT 9–100
[2025-03-08 02:58] LABS: MEAN PLATELET VOLUME 7.2 FL (7.4-10.4); RED CELL DISTRIBUTION WIDTH 17.5 % (11.5-14.5)
[2025-03-08 03:14] LABS: CREATININE 2.15 MG/DL (0.40-0.90); PHOSPHORUS 3.4 MG/DL (2.3-4.5); TOTAL CARBON DIOXIDE 28.4 MMOL/L (24-32); eCRCL 23 ML/MIN; eGFR 22 ML/MIN
[2025-03-08 03:34] LABS: ABG BASE EXCESS 2.3 mmol/L (-2.0-3.0); ABG HCO3 26.5 mmol/L (21.0-28.0); ABG OXYGEN SATURATION 95.9 % (94.0-98.0); ABG PCO2 (T) 39.4 mmHg (32.0-45.0); ABG PH (T) 7.446 (7.350-7.450); ABG PO2 (T) 85.8 mmHg (83.0-108.0); ALLEN'S TEST Modified; FCOHb 1.7 % (0.5-1.5); FHHb 4.0 % (0.0-5.0); FIO2 50.0 mmHg/%; FMetHb 0.3 % (0.0-1.5); FO2Hb 94.0 % (94.0-98.0); MODE ac/prvc; PATIENT TEMPERATURE 37.2; PEEP 5 cm H2O; RESPIRATORY RATE 15 b/min; TIDAL VOLUME 400 mL; TOTAL HEMOGLOBIN 7.5 G/dl (12.0-16.0)
--- NOTE | 2025-03-08 06:08 | RADIOLOGY REPORT ---
CHEST RADIOGRAPH Indication: Infiltrate. Technique: Single frontal view of the chest was obtained Comparison: CT CT CHEST on DOS: 03/07/25 FINDINGS: Lines and Tubes: There is a tracheostomy tube. The enteric tube courses below the left hemidiaphragm and the tip extends outside the field of view. Lungs: Patchy bilateral airspace disease. Pleura: Bilateral pleural effusions noted. No pneumothorax. Cardiomediastinal contours: Unremarkable Bones: No acute osseous abnormality. IMPRESSION: 1. Patchy bilateral airspace disease and bilateral pleural effusions.
[2025-03-08] MEDS ORDERED: levoFLOXACIN-Levaquin 750MG/D5 150 ML IV SCH (08:00)
[2025-03-08] MEDS ORDERED: magnesium hydroxide 30ml (MOM) UD suspension NG PRN (12:21)
[2025-03-08] MEDS: midodrine 5mg tablet PO SCH (12:57)
[2025-03-08] MEDS: VANCOMYCIN IV SCH (14:38)
[2025-03-08] MEDS: NS IV SCH (14:38)
[2025-03-08] MEDS: mineral oil/petrolatum ophthal oint EACHEYE SCH (14:40)
[2025-03-08] MEDS ORDERED: acetaminophen 325mg/10.15ml oral unit dose solution NG PRN (14:57)
[2025-03-08] MEDS ORDERED: POTASSIUM CHLORIDE 20 MEQ/15 ML oral solution NG PRN ×2 (14:58)
[2025-03-08] MEDS: midodrine 5mg tablet NG SCH (15:53)
--- NOTE | 2025-03-08 17:08 | PROCEDURE NOTE- Residance ---
Procedure Note Providers to CC CC: YOLANDA DIAZ RES ~ Planned Procedure Internal Jugular Central Line Indications Rapid decompensation, vasopressor administration, Hemodynamic monitoring Warehouse Examiner Dr. Diaz, Dr. Dominguez, Dr. Castorena Type of Anesthesia Local Lidocaine Informed Consent Obtained Description A time out was performed. My hands were washed immediately prior to the procedure. I wore a surgical cap, mask with protective eyewear, full gown and sterile gloves throughout the procedure. The patient was placed in Trendelenburg position. RIGHT chest region was prepped using chlorhexidine scrub and draped in sterile fashion using a full drape and sterile probe cover and sterile gel employed. The medial and lateral heads of the sternocleidomastoid muscle were identified as was the carotid pulse. The Internal Jugular vein was identified using the ultrasound. Anesthesia was achieved over the vein using 1% lidocaine. Using real-time out of plane guidance, the introducer needle was inserted into the right Internal Jugular vein under direct ultrasound visualiz ation. Venous blood was withdrawn. The syringe was removed and a guidewire was advanced into the introducer needle. The guidewire was visualized in the Internal Jugular Vein by ultrasound. A small incision was made at the skin surface with a scalpel and the introducer needle was exchanged for a dilator over the guidewire. After appropriate dilation was obtained, the dilator was ex changed over the wire for a curved central venous catheter. The wire was removed and the catheter was sutured in place. A sterile sorbaview shield was placed over the catheter at the insertion site. The patient tolerated the procedure without any hemodynamic compromise. At time of procedure completion, all ports aspirated and flushed properly. Post-procedure chest x-ray reviewed and line is in appropriate position. Estimated blood loss is 5cc. Estimated Blood Loss 5 mL Complication None X-Ray Findings Right IJ catheter tip projects over the SVC. Date of Service: Mar 08, 2025 Billing Provider: LAKESHIA DOMINGUEZ MD, SHIVANI, RES Mar 08, 2025 17:08
[2025-03-08] MEDS: rocuronium 10mg/ml inj IV ONE (17:09)
--- NOTE | 2025-03-08 18:03 | RADIOLOGY REPORT ---
CHEST RADIOGRAPH Indication: post IJ line Technique: DI CHEST,SINGLE VIEW COMPARISON: 03/08/2025 FINDINGS: Right IJ catheter tip projects over the SVC. Nasogastric tube projects towards stomach. Tracheostomy tube. The cardiac silhouette is enlarged. The lungs demonstrate bilateral patchy airspace opacities, [id number], slightly decreased from previous examination. The pulmonary vasculature is prominent. [id number] right pleural effusion and small left pleural effusions. There is no pneumothorax. IMPRESSION: As above
--- NOTE | 2025-03-08 18:55 | CARDIOLOGY REPORT ---
APPROVED REPORT EXAM: Comprehensive 2D, Doppler, and color-flow Echocardiogram. Patient Location: 2007 A Heart Rate: 81 bpm Rhythm: SINUS Indications CONGESTIVE HEART FAILURE HYPERTENSION DIABETES MELLITUS Boot Repairer: unknown (pt intubated, sedated) Previous echo: none 2D Dimensions RVDd 3.5 cm IVSd 1.0 (0.7-1.1cm) LVDd 4.9 cm PWd 0.9 (0.7-1.1cm) IVSs 1.3 (0.8-1.2cm) LVDs 3.2 (2.5-4.0cm) PWs 1.4 (0.8-1.2cm) LVOT Diameter 1.96 (1.8-2.4cm) LVEF(%) 64.2 (>50%) IVC 28.63 mm FS (%) 35.1 % SV 70.9 ml M-Mode Dimensions Left Atrium(MM) 3.65 (2.5-4.0cm) Aortic Root 3.12 (2.2-3.7cm) Aortic Cusp Exc 1.99 (1.5-2.0cm) Aortic Valve AoV Peak Gio. 128.3 cm/s AoV VTI 25.4 cm AO Peak GR. 6.6 mmHg AO Mean GR. 4 mmHg LVOT VTI 20.61 cm LVOT Peak Gio. 106.3 cm/s ROXY (VMAX) 2.49 cm2 ROXY (VTI) 2.44 cm2 Mitral Valve MV E Velocity 75.1 cm/s MV DECEL TIME 251 ms MV A Velocity 82.6 cm/s MV PHT 59 ms E/A Ratio 0.9 MVA (PHT) 3.75 cm2 Tricuspid Valve TR P. Velocity 258 cm/s TR Peak Gr. 27 mmHg LEFT VENTRICLE Normal LV size and wall thickness. Overall systolic function is normal. LVEF is 60-65%. RIGHT VENTRICLE RV is mildly dilated in size with mildly reduced function. ATRIA The left atrium size is normal. AORTIC VALVE Trileaflet AV appears mildly sclerotic without gross stenosis or insufficiency. Difficult to evaluate due to poor Doppler angle. MITRAL VALVE Mild MV annular calcification without stenosis. Trace regurgitation. TRICUSPID VALVE TV appears structurally normal with moderate regurgitation. PULMONIC VALVE Normal PV without stenosis, physiologic insufficiency. GREAT VESSELS Aortic root is normal in size. IVC is dilated and collapses less than 50% with inspiration. PERICARDIUM Normal pericardium. No effusion. Other Information Study Quality: Adequate, but difficult due to intubation, patient not sedated enough and continuously trying to sit up during exam. Conclusion Normal LV size and wall thickness. Overall systolic function is normal. LVEF is 60-65%. RV is mildly dilated in size with mildly reduced function. The left atrium size is normal. Trileaflet AV appears mildly sclerotic without gross stenosis or insufficiency. Difficult to evaluate due to poor Doppler angle. Mild MV annular calcification without stenosis. Trace regurgitation. TV appears structurally normal with moderate regurgitation. Normal pericardium. No effusion.
--- NOTE | 2025-03-08 18:56 | PROGRESS NOTE ---
Daily Progress Note Providers to CC ~ Antibiotic Timeout Antibiotic Ordered?: Yes Subjective Patient is seen in CICU lethargic intubated not responded to verbal commands. Objective Vital Signs Date Time Temp Pulse Resp B/P (MAP) Pulse Ox O2 Delivery O2 Flow Rate FiO2 03/08/25 18:24 15 03/08/25 18:00 97.9 89 101/60 (74) 92 Mechanical Ventilator 80 03/07/25 09:38 9.0 Result Diagram: 03/08/2522903/08/25229 General- chronically ill-appearing, not responded to verbal commands , HEENT-atraumatic normocephalic, neck supple currently on mechanical ventilator Eyes-no icterus or pallor seen in eyes Chest-coarse breath sounds to auscultation bilaterally, breathing nonlabored no tachypnea, Heart-S1-S2 normal, regular heart rate no murmur Abdomen bowel sounds positive on auscultation, soft nondistended nontender no guarding, no rigidity Neurology-patient is lethargic not responded to verbal commands Extremity- 1 plus pedal edema , not able to move all 4 extremities Coagulation Studies Laboratory Tests Test 03/06/25 03:06 Prothrombin Time 12.5 SECONDS (9.0-12.0) H INR International Normalized Ratio 1.2 INR Activated Partial Thromboplast Time 28 SECONDS (22-32) Coagulation Comments Problem\Assessment\Plan Patient is 74-year-old female with history of Chronic Pain, history of hypertension and diabetes.*CANCER*History of laryngectomy. patient had a history of throat cancer and had a trach placed in 2019. As per ER record. history of a trach who was brought in from home for weakness dyspnea and green sputum coming from her trach. The patient states she has been weak over the last 24 hours. # Patient is on norepinephrine drip . Dr. Fitzpatrick did bronchoscopy yesterday. Patient is admitted for sepsis due to bacterial/aspiration pneumonia plus UTI currently on IV antibiotics. Patient also has acute renal failure, anemia in paroxysmal atrial fibrillation. # Acute respiratory failure on mechanical ventilator CT chest showed- Diffuse bilateral pulmonary airspace consolidation and ground- glass disease, likely combination of infection/ pneumonia, edema and aspiration. Interlobular septal thickening consistent with edema.Obstruction of the right lower lobe bronchus with possible stent. Moderate bilateral pleural effusions. Right pleural effusion appears loculated. Mediastinal, axillary lymphadenopathy which can be secondary to infectious, inflammatory, neoplastic etiologies. Soft tissue edema/ anasarca. Ascites fluid. Other comorbidities include- Patient has severe anemia, hypokalemia, hypomagnesemia mildly elevated troponin BNP 1 0774. We will continue to monitor patient's labs and vitals closely . All labs and diagnostic and care plan workup reviewed. Further management depending on response to treatment in his recommended by escrow processor team. I will continue to follow patient in a.m. Date of Service: Mar 08, 2025 Billing Provider: BAL GALAN MD Common Visit Codes: [id number] INP/OBS CARE(MOD) BAL GALAN MD Mar 08, 2025 18:56
--- NOTE | 2025-03-08 20:41 | PROGRESS NOTE- Residence ---
Progress Note - Resident Providers to CC Resident Creating Document: DOMINIC TERRY SONIA MCCULLOUGH ~ Antibiotic Timeout Antibiotic Ordered?: Yes Subjective Patient seen and examined at the bedside today. She continues to be on mechanical ventilation and is on sedation with fentanyl and propofol.. Objective Vital Signs Date Time Temp Pulse Resp B/P (MAP) Pulse Ox O2 Delivery O2 Flow Rate FiO2 03/08/25 20:00 97.9 67 16 79/43 (55) 97 Mechanical Ventilator 70 03/07/25 09:38 9.0 Result Diagram: 03/08/25 0230 03/08/25 023 General: Recannulated, sedated and put on mechanical ventilation. HEENT: Conjunctiva pink, Sclera clear, Mucus Membranes moist. Tracheostomy in place. Neck: Supple without masses and tenderness. Resp: Coarse breath sounds heard bilaterally. No wheezing heard. Heart: Regular Rate and rhythm, normal S1 and S2 without murmur, rub or gallop. Abdomen: Soft and non tender no organomegaly Extremities: No cyanosis,clubbing or edema. Skin: Warm and Dry. Neurology: Under sedation. Coagulation Studies Laboratory Tests Test 03/06/25 03:06 Prothrombin Time 12.5 SECONDS (9.0-12.0) H INR International Normalized Ratio 1.2 INR Activated Partial Thromboplast Time 28 SECONDS (22-32) Coagulation Comments Assessment Assessment 74 years old female with past medical history of chronic pain, hypertension, diabetes, history of laryngeal cancer status post tracheostomy was admitted in the hospital for evaluation and management of acute hypoxemic respiratory failure most likely secondary to aspiration pneumonia. In view of the patient's worsening respiratory distress the patient is currently transferred to the ICU for further care and management. Plan Plan Acute hypoxemic respiratory failure Aspirational pneumonia Septic shock The patient had to be recannulated in view of her worsening respiratory distress. Continues to be on mechanical ventilation with a FiO2 of 50%. RT evaluation and treatment. Continue albuterol 2.5 mg q.4 hours and Mucomyst inhalation q.4 hours. Continue broad-spectrum IV antibiotics-IV vancomycin and Zosyn. Also added levofloxacin for atypical organism coverage. Continues to be on IV norepinephrine to maintain stable blood pressures. Started her on midodrine 10 mg t.i.d... Blood culture showed no growth after one day. Follow up with the sputum cultures. BJ on CKD stage 4 Hypernatremia Hypokalemia Most likely secondary to vasomotor nephropathy Was initially treated with IV fluids. Currently on hold. Renal function has been improving since admission. Replacing potassium as per the protocol. The most likely cause of the patient's hypernatremia is dehydration. Improving. We will continue to monitor the patient's electrolytes closely. Paroxysmal atrial fibrillation Currently the patient is in sinus rhythm. Goes in and out of atrial fibrillation. Started the patient on p.o. amiodarone 400 mg b.i.d. for one week and continue p.o. amiodarone 200 mg once daily. Not on anticoagulation currently. Severe anemia Most likely secondary to iron-deficiency. Patient received 3 units of PRBC transfusion. Suspicion for underlying GI bleed. Started her on IV Protonix 40 b.i.d. for GI prophylaxis. We will consider GI consultation if the patient's H&H trend down. Continue close monitoring of the patient's H&H. We will benefit from IV iron infusion once sepsis is resolved. Nutrition Started the patient on tube feeds via NG tube. Consulted the learning and development analyst. Appreciate recommendations. CODE STATUS: Full code DVT prophylaxis: SCDs GI prophylaxis: IV Protonix Diet: Tube feeds Disposition: Continue management in the intensive care unit. Dominic Terry MD Internal Medicine Resident, PGY-3 Date of Service: Mar 08, 2025 Billing Provider: LAKESHIA YUN MD,DOMINIC MCCULLOUGH, RES Mar 08, 2025 20:41
--- NOTE | 2025-03-08 21:58 | PROGRESS NOTE ---
Progress Note Dictate Providers to CC ~ Antibiotic Ordered?: Yes Objective Vitals Vital Signs Date Time Temp Pulse Resp B/P (MAP) Pulse Ox O2 Delivery O2 Flow Rate FiO2 03/08/25 20:50 55 03/08/25 20:47 60 15 100 03/08/25 20:00 97.9 79/43 (55) Mechanical Ventilator 03/07/25 09:38 9.0 Lab Results: 03/08/25 0230 03/08/25 0230 Coagulation Studies Laboratory Tests Test 03/06/25 03:06 Prothrombin Time 12.5 SECONDS (9.0-12.0) H INR International Normalized Ratio 1.2 INR Activated Partial Thromboplast Time 28 SECONDS (22-32) Coagulation Comments Problem\Assessment\Plan Additional Plan Night time TeleICU coverage Patient seen and evaluated using HIPPA complaint AV device Admitted for respiratory failure from PNA/Pleural effusion and pulmonary edema. On mechanical ventilation 70% fi02 Intubated and sedated Continue mechanical ventilation BS abx Pressor support stress dose steriod DC IVF with worsening hypoxia and pulm edema [id number] MD CRESENCIO Pierre,KRISTIN Beltran MD Mar 08, 2025 21:57
[2025-03-08] MEDS: hydrocortisone sod succ/PF 100mg/2ml inj. IV SCH (22:20)
[2025-03-09] VITALS (52 sets, daily range): BP systolic 85–126; BP diastolic 50–74; PULSE 49–84; RESP 14–24; TEMP 97.9–98.5; O2SAT 90–99
[2025-03-09 04:07] LABS: ABG BASE EXCESS 1.9 mmol/L (-2.0-3.0); ABG HCO3 27.9 mmol/L (21.0-28.0); ABG OXYGEN SATURATION 95.7 % (94.0-98.0); ABG PCO2 (T) 51.9 mmHg (32.0-45.0); ABG PH (T) 7.347 (7.350-7.450); ABG PO2 (T) 90.2 mmHg (83.0-108.0); ALLEN'S TEST Modified; FCOHb 1.7 % (0.5-1.5); FHHb 4.2 % (0.0-5.0); FIO2 55.0 mmHg/%; FMetHb 0.3 % (0.0-1.5); FO2Hb 93.8 % (94.0-98.0); MODE ac/prvc; PATIENT TEMPERATURE 36.9; PEEP 5 cm H2O; RESPIRATORY RATE 15 b/min; TIDAL VOLUME 400 mL; TOTAL HEMOGLOBIN 7.3 G/dl (12.0-16.0)
[2025-03-09 04:12] LABS: MEAN PLATELET VOLUME 7.5 FL (7.4-10.4); RED CELL DISTRIBUTION WIDTH 17.8 % (11.5-14.5)
[2025-03-09 04:18] LABS: CREATININE 1.92 MG/DL (0.40-0.90); PHOSPHORUS 4.5 MG/DL (2.3-4.5); TOTAL CARBON DIOXIDE 29.4 MMOL/L (24-32); eCRCL 25 ML/MIN; eGFR 26 ML/MIN
--- NOTE | 2025-03-09 06:00 | RADIOLOGY REPORT ---
CHEST RADIOGRAPH Indication: ET Tube PLacement Technique: Single frontal view of the chest was obtained Comparison: DI CHEST,SINGLE VIEW on DOS: 03/08/25 FINDINGS: Lines and Tubes: Tracheostomy tube is unchanged. There is a right central venous catheter with its tip terminating in the superior vena cava. The enteric tube courses below the left hemidiaphragm and the tip extends outside the field of view. Lungs: Hazy bilateral opacities similar to prior study. Pleura: There are bilateral pleural effusions. No pneumothorax. Cardiomediastinal contours: Unremarkable Bones: No acute osseous abnormality. IMPRESSION: 1. Hazy bilateral opacities and pleural effusions. No significant interval change.
[2025-03-09] MEDS: levoFLOXACIN-Levaquin 500mg/D5 100 ML IV SCH (08:14)
--- NOTE | 2025-03-09 10:20 | CONSULTATION REPORT - RESIDENT ---
Consult Providers to CC Resident Creating Document: INGRID CEECORINNE Beltran RES History of Present Illness Reason for Admit\Complaint: Reason for GI consult: Suspected upper GI bleeding. History of Present Illness 74-year-old female patient with history of throat cancer with previous tracheostomy presented to the hospital with chief complaint of weakness. Currently managed for acute hypoxemic respiratory failure most likely secondary to aspiration pneumonia. The patient has been decannulated through tracheostomy due to her underlying condition. During her hospital stay severe anemia requiring a total of 4 units of packed red blood cells has been evidenced. The patient is currently under mechanical ventilation through tracheostomy tube, receiving tube feedings. Last bowel movement reported on Friday, uncertain if it was melena, but reportedly not hematochezia. GI has been consulted due to the suspicion of upper gastrointestinal bleeding. Allergies: Coded Allergies: codeine (Verified Allergy, Severe, 03/05/25) Home Medications Home Medications Active Reported Metformin HCl 1,000 Mg Tablet 1 Tab PO BIDWM Lisinopril 5 Mg Tablet 1 Tab PO DAILY Rosuvastatin Calcium 40 Mg Tablet 1 Tab PO DAILY Cetirizine HCl 10 Mg Tablet 1 Tab PO DAILY Past Medical History Past Medical History Chronic pain. Hypertension. Diabetes. History of laryngeal cancer status post tracheostomy. Past Surgical History Surgical History Comment S/p tracheostomy due to laryngeal cancer. Exam Vitals: Vital Signs Date Time Temp Pulse Resp B/P (MAP) Pulse Ox O2 Delivery O2 Flow Rate FiO2 03/09/25 10:00 98.8 56 15 121/71 (88) 94 Mechanical Ventilator 55 03/07/25 09:38 9.0 Physical exam: General: Patient is currently under sedation due to mechanical ventilation through tracheostomy tube. HEENT: Conjunctive are pale, sclerae clear, no icterus, pupil is equal in both sides, reactive to light, no ear discharge, no pharyngeal erythema or an edema. Presence of NG tube in the right nostril. Neck: Supple, no adenopathy, thyromegaly. Trachea is midline. No JVD. Presence of central line in the right side of the neck. Presence of tracheostomy tube in the midline of the neck. Chest: Respiratory: Vesicular breath sounds. No ronchi, crepitus or wheezing. Resonance is normal upon percussion of all lung harmon. Cardiovascular: S1-S2 regular sinus rhythm and, regular rate, no gallops, no rubs, no murmurs Abdomen: No visible distention, Bowel sounds present on auscultation, on palpation: soft, nontender, no guarding, no rigidity. Extremities: No pitting edema bilaterally, capillary refill intact, peripheral pulsations are intact on both sides Neurologic: Mental status: Patient is currently under sedation due to mechanical ventilation. No further neurological assessment done due to underlying sedation. Negative Babinski. Skin: Warm and dry. Diagnostic Data Last Recorded Lab Results: 03/09/2519903/09/25 020 Diagnostic Data: Laboratory Tests Test 03/06/25 03:06 Prothrombin Time 12.5 SECONDS (9.0-12.0) H INR International Normalized Ratio 1.2 INR Activated Partial Thromboplast Time 28 SECONDS (22-32) Coagulation Comments Additional Plan Assessment and plan: 74-year-old female patient with history of throat cancer and previous tracheostomy admitted for evaluation and management of acute hypoxemic respiratory failure, suspected aspiration pneumonia. In view of the patient's once or in respiratory distress she was recannulated through tracheostomy, transferred to in ICU for further management. The patient has been treated appropriately by client renewal specialist team, GI was consulted due to the concern of severe anemia for which she required 4 units of blood, unknown etiology, suspected upper gastrointestinal bleeding. Suspected upper gastrointestinal bleeding. 1) PUD. 2) gastritis or stress ulcers. Considering the patient is currently critically ill. 3) possible malignancy. Regarding the previous history of laryngeal cancer and age of the patient. The patient had experienced severe anemia requiring 4 units of blood. Suspected upper gastrointestinal bleeding. Recommendations: The patient has been hemodynamically stable. Plan for EGD tomorrow. NPO for procedure. Other comorbidities. Acute hypoxemic respiratory failure, aspiration pneumonia. Acute kidney injury on CKD stage 4. Hypernatremia. Hypokalemia. Paroxysmal AFib. Appropriately managed by client renewal specialist. Code status: Full code DVT prophylaxis: SCDs Analgesia/sedation: Acetaminophen and morphine. Line/tube: PIV, central line, NG tube GI prophylaxis: Protonix Nutrition: Tube feeding Prognosis: Guarded Corinne Garcia Internal Medicine Resident [facility] Date of Service: Mar 09, 2025 Billing Provider: BASIM MANZANARES MD, FRANCO LUIS, RES Mar 09, 2025 10:20
[2025-03-09] MEDS ORDERED: glucagon, human recombinant 1mg kit SUBCUT PRN (11:05)
[2025-03-09] MEDS ORDERED: DEXTROSE 15 GM of carb/4 tabs (each vial/BOTTLE has 4 tablets) NG PRN ×2 (11:05)
[2025-03-09 11:11] LABS: MEAN PLATELET VOLUME 7.2 FL (7.4-10.4); RED CELL DISTRIBUTION WIDTH 17.2 % (11.5-14.5)
--- NOTE | 2025-03-09 13:55 | RADIOLOGY REPORT ---
CHEST RADIOGRAPH Indication: Post Thoracentesis Technique: Single frontal view of the chest was obtained COMPARISON: DI CHEST,SINGLE VIEW on DOS: 03/09/25, DI CHEST,SINGLE VIEW on DOS: 03/08/25, DI CHEST,SINGLE VIEW on DOS: 03/08/25, CT CT CHEST on DOS: 03/07/25, DI CHEST,SINGLE VIEW on DOS: 03/07/25 FINDINGS: Lines and Tubes: Tracheostomy, enteric catheter and right central venous catheter in satisfactory position. Lungs: Cardiomegaly. Pleura: Moderate bilateral pleural effusions. No pneumothorax. Cardiomediastinal contours: Unremarkable. Bones: Unremarkable. IMPRESSION: No appreciable pneumothorax post thoracentesis.
[2025-03-09] MEDS: insulin regular, human U-100 10ml vial - multi-dose SQ SCH (15:16)
--- NOTE | 2025-03-09 15:16 | RADIOLOGY REPORT ---
PROCEDURE: ULTRASOUND GUIDED THORACENTESIS USING TEMPORARY CATHETER HISTORY: 74 Female with requiring thoracentesis. DOCUMENTATION: Informed consent was obtained and a procedural time out was performed. TECHNIQUE: Ultrasound was used to locate the right pleural fluid collection with an image archived in the PACS. The skin over the right posterior hemithorax was sterilely prepped, draped, and infiltrated with 1% lidocaine. Under real time ultrasound guidance, the right pleural space was accessed with a 19-gauge Yueh needle and connected to Vacutainers. The Yueh catheter was advanced, the needle was removed and the temporary catheter was advanced and connected to the Vacutainer. Approximately 0.65 liters of serous fluid was removed. The temporary catheter was removed and sterile dressings were applied. FINDINGS: Ultrasound demonstrates a right pleural effusion. Imaging confirms the needle tip within the fluid. IMPRESSION: SUCCESSFUL ULTRASOUND GUIDED THORACENTESIS. Performed by Dr. Dominguez.
[2025-03-09 15:42] LABS: PLEURAL FLUID PH 7.422 (7.63-7.65)
[2025-03-09 15:47] LABS: GLUCOSE,BODY FLUID 172 MG/DL; LDH,BODY FLUID 127 U/L; TOTAL PROTEIN,BODY FLUID 2.2 G/DL
[2025-03-09 16:18] LABS: BF RBC COUNT 695 /CU MM; BF WBC COUNT 195 /CU MM (0-1000); BFAPPEAR HAZY; BFCOLOR YELLOW; BFSOURCE RIGHT PLEURAL FLD; BFVOLUME 50 ML
[2025-03-09 16:22] LABS: LYMPHOCYTES,BODY FLUID 90 %; MONOCYTES,BODY FLUID 4 %; NEUTROPHILS,BODY FLUID 6 %
[2025-03-09 16:29] LABS: BFSOURCE RIGHT PLEURAL FLD
--- NOTE | 2025-03-09 17:34 | PROGRESS NOTE- Residence ---
Progress Note - Resident Providers to CC Resident Creating Document: DOMINIC TERRYSONIA ~ Antibiotic Timeout Antibiotic Ordered?: Yes Subjective Patient seen and examined at the bedside today. She continues to be on mechanical ventilation and is on sedation with fentanyl and propofol.. Objective Vital Signs Date Time Temp Pulse Resp B/P (MAP) Pulse Ox O2 Delivery O2 Flow Rate FiO2 03/09/25 17:03 11 03/09/25 16:56 99/59 03/09/25 16:28 63 94 40 03/09/25 16:00 98.8 Mechanical Ventilator 03/07/25 09:38 9.0 Result Diagram: 03/09/25 1055 03/09/25 0200 General: Recannulated, sedated and put on mechanical ventilation. HEENT: Conjunctiva pink, Sclera clear, Mucus Membranes moist. Tracheostomy in place. Neck: Supple without masses and tenderness. Resp: Reduced breath sounds on the right lower lobes. Mild and diffuse rhonchi present in the left lower lobes. Heart: Regular Rate and rhythm, normal S1 and S2 without murmur, rub or gallop. Abdomen: Soft and non tender no organomegaly Extremities: No cyanosis,clubbing or edema. Skin: Warm and Dry. Neurology: Under sedation. Coagulation Studies Laboratory Tests Test 03/06/25 03:06 Prothrombin Time 12.5 SECONDS (9.0-12.0) H INR International Normalized Ratio 1.2 INR Activated Partial Thromboplast Time 28 SECONDS (22-32) Coagulation Comments Assessment Assessment 74 years old female with past medical history of chronic pain, hypertension, diabetes, history of laryngeal cancer status post tracheostomy was admitted in the hospital for evaluation and management of acute hypoxemic respiratory failure most likely secondary to aspiration pneumonia. In view of the patient's worsening respiratory distress the patient is currently transferred to the ICU for further care and management. Plan Plan Acute hypoxemic respiratory failure Aspirational pneumonia Septic shock The patient had to be recannulated in view of her worsening respiratory distress. Is continued on mechanical ventilation and with a FiO2 of 55%. RT evaluation and treatment. Continue albuterol 2.5 mg q.4 hours and Mucomyst inhalation q.4 hours. Continue broad-spectrum IV antibiotics-IV vancomycin and Zosyn. Also added levofloxacin for atypical organism coverage. Requiring low dose of IV norepinephrine to maintain stable blood pressures. Continue midodrine 10 mg p.o. t.i.d.. Respiratory culture growing few normal respiratory amrik. Blood cultures show no growth. Pleural effusion Most likely secondary to aspiration pneumonia. Ultrasound guided right pleural effusion was identified. Thoracentesis was done and approximately 0.65 L of serous fluid was removed. The fluid was initially straw-colored and later turned bloody. We will follow up with fluid analysis. BJ on CKD stage 4 Hypernatremia Hypokalemia Most likely secondary to vasomotor nephropathy Was initially treated with IV fluids. Currently on hold. Renal function has been improving since admission. Replacing potassium as per the protocol. The most likely cause of the patient's hypernatremia is dehydration. Increase free water flushes to 200 mL q.4 hours. We will continue to monitor the patient's electrolytes closely. Paroxysmal atrial fibrillation Currently the patient is in sinus rhythm. Goes in and out of atrial fibrillation. Started the patient on p.o. amiodarone 400 mg b.i.d. for one week and continue p.o. amiodarone 200 mg once daily. Not on anticoagulation currently. Severe anemia Possible underlying upper GI bleed. Patient also has iron-deficiency anemia. Continue IV Protonix 40 b.i.d. Consulted the on-call [place] management specialist. NPO after midnight and we will get a EGD tomorrow. Can consider IV iron infusion once sepsis is resolved. Nutrition Started the patient on tube feeds via NG tube. Consulted the community service coordinator. Appreciate recommendations. Diabetes mellitus Started the patient on low-dose sliding scale of insulin. CODE STATUS: Full code DVT prophylaxis: SCDs GI prophylaxis: IV Protonix Diet: Tube feeds Disposition: Continue management in the intensive care unit. Dominic Terry MD Internal Medicine Resident, PGY-3 Date of Service: Mar 09, 2025 Billing Provider: LAKESHIA YUN MD,DOMINIC MCCULLOUGH, RES Mar 09, 2025 17:34
--- NOTE | 2025-03-09 20:02 | PROCEDURE NOTE- Residance ---
Procedure Note Providers to CC CC: MOE ROBERSON, SONIA ~ Planned Procedure Right thoracentesis Indications Right-sided pleural effusion [employer] Dr. Mara Yun Type of Anesthesia Local Informed Consent Emergent procedures Description Ultrasound was used to locate the right pleural fluid collection with an image archived in the PACS. The skin over the right posterior hemithorax was sterilely prepped, draped, and infiltrated with 1% lidocaine. Under real time ultrasound guidance, the right pleural space was accessed with a 19-gauge Yueh needle and connected to Vacutainers. The Yueh catheter was advanced, the needle was removed and the temporary catheter was advanced and connected to the Vacutainer. Approximately 0.65 liters of serous fluid that later turned bloody was removed. The temporary catheter was removed and sterile dressings were applied. Estimated Blood Loss None Complication None X-Ray Findings Reviewed, no pneumothorax. Date of Service: Mar 09, 2025 Billing Provider: LAKESHIA YUN MD, SURYA PRATIK, SONIA Mar 09, 2025 20:02
--- NOTE | 2025-03-09 20:11 | PROGRESS NOTE ---
Daily Progress Note Providers to CC ~ Antibiotic Timeout Antibiotic Ordered?: Yes Subjective Patient is seen in CICU lethargic intubated not responded to verbal commands. Thoracocentesis done by Dr. Dominguez and resident today. Objective Vital Signs Date Time Temp Pulse Resp B/P (MAP) Pulse Ox O2 Delivery O2 Flow Rate FiO2 03/09/25 20:00 99.0 55 15 115/61 (79) 95 Mechanical Ventilator 40 03/07/25 09:38 9.0 Result Diagram: 03/09/25 1055 03/09/25 0200 General- chronically ill-appearing, not responded to verbal commands , HEENT-atraumatic normocephalic, neck supple currently on mechanical ventilator, Eyes-no icterus or pallor seen in eyes Chest-coarse breath sounds to auscultation bilaterally, breathing nonlabored no tachypnea, Heart-S1-S2 normal, regular heart rate no murmur Abdomen bowel sounds positive on auscultation, soft nondistended nontender no guarding, no rigidity Neurology-patient is lethargic not responded to verbal commands Extremity- 1 plus pedal edema , not able to move all 4 extremities Coagulation Studies Laboratory Tests Test 03/06/25 03:06 Prothrombin Time 12.5 SECONDS (9.0-12.0) H INR International Normalized Ratio 1.2 INR Activated Partial Thromboplast Time 28 SECONDS (22-32) Coagulation Comments Problem\Assessment\Plan Patient is 74-year-old female with history of Chronic Pain, history of hypertension and diabetes.*CANCER*History of laryngectomy. patient had a history of throat cancer and had a trach placed in 2019. As per ER record. history of a trach who was brought in from home for weakness dyspnea and green sputum coming from her trach. The patient states she has been weak over the last 24 hours. # Patient is on norepinephrine drip . Dr. Fitzpatrick did bronchoscopy yesterday. Patient is admitted for sepsis due to bacterial/aspiration pneumonia plus UTI currently on IV antibiotics. Patient also has acute renal failure, anemia in paroxysmal atrial fibrillation. # Acute respiratory failure on mechanical ventilator CT chest showed- Diffuse bilateral pulmonary airspace consolidation and ground- glass disease, likely combination of infection/ pneumonia, edema and aspiration. Interlobular septal thickening consistent with edema.Obstruction of the right lower lobe bronchus with possible stent. Moderate bilateral pleural effusions. Right pleural effusion appears loculated. Mediastinal, axillary lymphadenopathy which can be secondary to infectious, inflammatory, neoplastic etiologies. Soft tissue edema/ anasarca. Ascites fluid. Other comorbidities include- Patient has severe anemia, hypokalemia, hypomagnesemia mildly elevated troponin BNP 1 0774. We will continue to monitor patient's labs and vitals closely . All labs and diagnostic and care plan workup reviewed. Further management depending on response to treatment in his recommended by medical billing associate team. I will continue to follow patient in a.m. Date of Service: Mar 09, 2025 Billing Provider: BAL GALAN MD Common Visit Codes: [id number] INP/OBS CARE(MOD) BAL GALAN MD Mar 09, 2025 20:11
[2025-03-10] VITALS (42 sets, daily range): BP systolic 86–133; BP diastolic 51–78; PULSE 45–94; RESP 14–21; O2SAT 85–98
--- NOTE | 2025-03-10 00:51 | PROGRESS NOTE ---
Progress Note Dictate Providers to CC ~ Antibiotic Ordered?: Yes Objective Vitals Vital Signs Date Time Temp Pulse Resp B/P (MAP) Pulse Ox O2 Delivery O2 Flow Rate FiO2 03/10/25 00:00 98.1 55 15 92/55 (67) 92 Mechanical Ventilator 40 03/07/25 09:38 9.0 Lab Results: 03/09/25 1055 03/09/25 0200 Coagulation Studies Laboratory Tests Test 03/06/25 03:06 Prothrombin Time 12.5 SECONDS (9.0-12.0) H INR International Normalized Ratio 1.2 INR Activated Partial Thromboplast Time 28 SECONDS (22-32) Coagulation Comments Problem\Assessment\Plan Additional Plan Night time TeleICU coverage Patient seen and evaluated using HIPPA complaint AV device Admitted for respiratory failure from PNA/Pleural effusion and pulmonary edema. On mechanical ventilation 40% fi02 S/P thoracenthesis Intubated and sedated Continue mechanical ventilation, BS abx Pressor support stress dose steriod Electrolyte replacement DC IVF with worsening hypoxia and pulm edema [id number] MD CRESENCIO Pierre HILL A MD Mar 10, 2025 00:51
[2025-03-10 02:53] LABS: MEAN PLATELET VOLUME 7.6 FL (7.4-10.4); RED CELL DISTRIBUTION WIDTH 17.6 % (11.5-14.5)
[2025-03-10 03:14] LABS: CREATININE 2.06 MG/DL (0.40-0.90); PHOSPHORUS 4.8 MG/DL (2.3-4.5); TOTAL CARBON DIOXIDE 27.1 MMOL/L (24-32); eCRCL 24 ML/MIN; eGFR 24 ML/MIN
[2025-03-10] MEDS: potassium Cl 20mEq/100mL bag 100 ML IV PRN (03:35)
[2025-03-10 03:43] LABS: EOSINOPHILS % (MANUAL) 1.0 % (0-6); LYMPHOCYTES % (MANUAL) 11.0 % (21-51); MONOCYTES % (MANUAL) 3.0 % (2-12); NEUTROPHILS % (MANUAL) 85.0 % (42-75); PLATELET ESTIMATE NORMAL
--- NOTE | 2025-03-10 06:01 | RADIOLOGY REPORT ---
CHEST RADIOGRAPH Indication: ET Tube PLacement Technique: Single frontal view of the chest was obtained Comparison: DI CHEST,SINGLE VIEW on DOS: 03/09/25 FINDINGS: Lines and Tubes: Tracheostomy tube is noted. There is a right central venous catheter with its tip terminating in the superior vena cava. The enteric tube terminates in the stomach. Lungs: Bilateral airspace opacities similar to prior study. Pleura: Bilateral pleural effusions similar to prior study. No pneumothorax. Cardiomediastinal contours: Unremarkable Bones: No acute osseous abnormality. IMPRESSION: 1. Appropriate position of the support lines and tubes. 2. Bilateral airspace opacities and pleural effusions similar to prior study.
[2025-03-10 06:37] LABS: ABG BASE EXCESS -0.9 mmol/L (-2.0-3.0); ABG HCO3 25.8 mmol/L (21.0-28.0); ABG OXYGEN SATURATION 94.5 % (94.0-98.0); ABG PCO2 (T) 52.2 mmHg (32.0-45.0); ABG PH (T) 7.310 (7.350-7.450); ABG PO2 (T) 73.3 mmHg (83.0-108.0); ALLEN'S TEST Yes; FCOHb 1.6 % (0.5-1.5); FHHb 5.4 % (0.0-5.0); FIO2 40.0 mmHg/%; FMetHb 0.3 % (0.0-1.5); FO2Hb 92.7 % (94.0-98.0); PATIENT TEMPERATURE 36.6; TOTAL HEMOGLOBIN 9.3 G/dl (12.0-16.0)
[2025-03-10] MEDS: magnesium sulf-water 2g/50mL 50 ML IV PRN (07:58)
[2025-03-10] MEDS: VANCOMYCIN LEVEL IV ONE (11:54)
[2025-03-10] MEDS: midodrine 5mg tablet NG SCH (11:56)
[2025-03-10] MEDS ORDERED: propofol inj 20 ML IV ONE ×2 (13:04)
--- NOTE | 2025-03-10 18:09 | PROGRESS NOTE- Residence ---
Progress Note - Resident Providers to CC Resident Creating Document: DOMINIC TERRYSONIA ~ Antibiotic Timeout Antibiotic Ordered?: Yes Subjective Patient seen and examined at the bedside today. She continues to be on mechanical ventilation and is on sedation with fentanyl and propofol. Objective Vital Signs Date Time Temp Pulse Resp B/P (MAP) Pulse Ox O2 Delivery O2 Flow Rate FiO2 03/10/25 17:11 132/70 03/10/25 17:00 98.1 60 19 96 Mechanical Ventilator 45 03/07/25 09:38 9.0 Result Diagram: 03/10/2519903/10/25199 General: Recannulated, sedated and put on mechanical ventilation. HEENT: Conjunctiva pink, Sclera clear, Mucus Membranes moist. Tracheostomy in place. Neck: Supple without masses and tenderness. Resp: Reduced breath sounds on the right lower lobes. Mild and diffuse rhonchi present in the left lower lobes. Heart: Regular Rate and rhythm, normal S1 and S2 without murmur, rub or gallop. Abdomen: Soft and non tender no organomegaly Extremities: No cyanosis,clubbing or edema. Skin: Warm and Dry. Neurology: Under sedation. Coagulation Studies Laboratory Tests Test 03/06/25 03:06 Prothrombin Time 12.5 SECONDS (9.0-12.0) H INR International Normalized Ratio 1.2 INR Activated Partial Thromboplast Time 28 SECONDS (22-32) Coagulation Comments Assessment Assessment 74 years old female with past medical history of chronic pain, hypertension, diabetes, history of laryngeal cancer status post tracheostomy was admitted in the hospital for evaluation and management of acute hypoxemic respiratory failure most likely secondary to aspiration pneumonia. In view of the patient's worsening respiratory distress the patient is currently transferred to the ICU for further care and management. Plan Plan Acute hypoxemic respiratory failure Aspirational pneumonia Septic shock The patient had to be recannulated in view of her worsening respiratory distress. Is continued on mechanical ventilation and with a FiO2 of 45%. RT evaluation and treatment. Continue albuterol 2.5 mg q.4 hours and Mucomyst inhalation q.4 hours. Continue broad-spectrum IV antibiotics-IV vancomycin and Zosyn. Also on levofloxacin for atypical organism coverage. Requiring low dose of IV norepinephrine to maintain stable blood pressures. Continue midodrine 10 mg p.o. t.i.d.. Plan to wean the patient off of IV norepinephrine. Respiratory culture growing few normal respiratory amrik. Blood cultures show no growth. Pleural effusion Ultrasound guided right pleural effusion was identified. Thoracentesis was done and approximately 0.65 L of serous fluid was removed. The fluid was initially straw-colored and later turned bloody. Fluid analysis shows transudative fluid. Most likely secondary to underlying nephrotic syndrome. Follow up with lipid panel, urinary lytes and protein. BJ on CKD stage 4 Hypernatremia Hypokalemia Most likely secondary to vasomotor nephropathy Was initially treated with IV fluids. Currently on hold. Renal function has been improving since admission. Replacing potassium as per the protocol. The most likely cause of the patient's hypernatremia is dehydration. Increase free water flushes to 200 mL q.4 hours. We will continue to monitor the patient's electrolytes closely. Paroxysmal atrial fibrillation Currently the patient is in sinus rhythm. Goes in and out of atrial fibrillation. Started the patient on amiodarone 400 once daily currently. Planned to start 200 once daily after one week. Not on anticoagulation currently. Severe anemia Possible underlying upper GI bleed. Patient also has iron-deficiency anemia. The patient had an upper GI endoscopy today by Dr. Hurtado. No active signs lesions of bleeding were noted. Continue IV Protonix 40 b.i.d. Can consider IV iron infusion once sepsis is resolved. Nutrition Started the patient on tube feeds via NG tube. Consulted the city solicitor. Appreciate recommendations. Diabetes mellitus Started the patient on low-dose sliding scale of insulin. CODE STATUS: Full code DVT prophylaxis: SCDs GI prophylaxis: IV Protonix Diet: Tube feeds Disposition: Continue management in the intensive care unit. Dominic Terry MD Internal Medicine Resident, PGY-3 Date of Service: Mar 10, 2025 Billing Provider: LAKESHIA YUN MD,DOMINIC MCCULLOUGH, RES Mar 10, 2025 18:09
--- NOTE | 2025-03-10 18:33 | PROGRESS NOTE ---
Daily Progress Note Providers to CC ~ Antibiotic Timeout Antibiotic Ordered?: Yes Subjective Was seen in CICU, patient was about to get EGD for GI bleeding. Not much change since yesterday in her medical status Objective Vital Signs Date Time Temp Pulse Resp B/P (MAP) Pulse Ox O2 Delivery O2 Flow Rate FiO2 03/10/25 18:00 97.9 50 18 115/67 (83) 95 Mechanical Ventilator 45 03/07/25 09:38 9.0 Result Diagram: 03/10/2519903/10/25199 General- chronically ill-appearing, not responded to verbal commands , HEENT-atraumatic normocephalic, neck supple currently on mechanical ventilator, Eyes-no icterus or pallor seen in eyes Chest-coarse breath sounds to auscultation bilaterally, breathing nonlabored no tachypnea, Heart-S1-S2 normal, regular heart rate no murmur Abdomen bowel sounds positive on auscultation, soft nondistended nontender no guarding, no rigidity Neurology-patient is lethargic not responded to verbal commands Extremity- 1 plus pedal edema , not able to move all 4 extremities Coagulation Studies Laboratory Tests Test 03/06/25 03:06 Prothrombin Time 12.5 SECONDS (9.0-12.0) H INR International Normalized Ratio 1.2 INR Activated Partial Thromboplast Time 28 SECONDS (22-32) Coagulation Comments Problem\Assessment\Plan Patient is 74-year-old female with history of Chronic Pain, history of hypertension and diabetes.*CANCER*History of laryngectomy. patient had a history of throat cancer and had a trach placed in 2019. As per ER record. history of a trach who was brought in from home for weakness dyspnea and green sputum coming from her trach. The patient states she has been weak over the last 24 hours. # Patient is on norepinephrine drip . Dr. Fitzpatrick did bronchoscopy . Patient is admitted for sepsis due to bacterial/aspiration pneumonia plus UTI currently on IV antibiotics. Patient also has acute renal failure, anemia in paroxysmal atrial fibrillation. # Acute respiratory failure on mechanical ventilator CT chest showed- Diffuse bilateral pulmonary airspace consolidation and ground- glass disease, likely combination of infection/ pneumonia, edema and aspiration. Interlobular septal thickening consistent with edema.Obstruction of the right lower lobe bronchus with possible stent. Moderate bilateral pleural effusions. Right pleural effusion appears loculated. Mediastinal, axillary lymphadenopathy which can be secondary to infectious, inflammatory, neoplastic etiologies. Soft tissue edema/ anasarca. Ascites fluid. Other comorbidities include- Patient has severe anemia, hypokalemia, hypomagnesemia mildly elevated troponin BNP 1 0774. patient was about to get EGD for GI bleeding. We will continue to monitor patient's labs and vitals closely . All labs and diagnostic and care plan workup reviewed. Further management depending on response to treatment in his recommended by rest room matron team. I will continue to follow patient in a.m. Date of Service: Mar 10, 2025 Billing Provider: BAL GALAN MD Common Visit Codes: [id number] INP/OBS CARE(MOD) BAL GALAN MD Mar 10, 2025 18:33
--- NOTE | 2025-03-10 19:03 | PATHOLOGY REPORT ---
[facility] [address] [place] [address] NON-AUTOMOBILE DAMAGE FIELD APPRAISER CYTOLOGY REPORT CaseNumber: [id number] Surgeon:Francisco Dominguez M.D. CLINICAL INFORMATION CLINICAL INFORMATION: Right pleural effusion. DIAGNOSIS DIAGNOSIS: PLEURAL FLUID, RIGHT; THORACENTESIS - NEGATIVE FOR MALIGNANT EPITHELIAL CELL POPULATION. MICROSCOPIC DESCRIPTION MICROSCOPIC DESCRIPTION: One H&E stained slide from cell block and one Pap stained double cytospin slide are examined. Present are blood elements only. There is no significant macrophage or mesothelial cell component. A malignant epithelial cell population is not identified. (st) GROSS DESCRIPTION GROSS DESCRIPTION: Specimen is received in cytostat red, labeled with the patient's name and identified as "right pleural fluid" having a total volume of 15 mL of yellow cytostat red. One double cytospin slide and one cell block is prepared. The cell block is submitted as A1. The time at which the specimen was collected was 1320. The time at which the specimen was placed in formalin was 1320. ([id number]) Electronically signed by: Jared Vela M.D. [id number]
--- NOTE | 2025-03-10 23:38 | PROGRESS NOTE ---
Progress Note Dictate Providers to CC ~ Antibiotic Ordered?: Yes Objective Vitals Vital Signs Date Time Temp Pulse Resp B/P (MAP) Pulse Ox O2 Delivery O2 Flow Rate FiO2 03/10/25 23:23 52 18 Mechanical Ventilator 50 03/10/25 23:19 94 03/10/25 23:00 97.9 119/64 (82) 03/07/25 09:38 9.0 Lab Results: 03/10/25 0200 03/10/25 0200 Coagulation Studies Laboratory Tests Test 03/06/25 03:06 Prothrombin Time 12.5 SECONDS (9.0-12.0) H INR International Normalized Ratio 1.2 INR Activated Partial Thromboplast Time 28 SECONDS (22-32) Coagulation Comments Problem\Assessment\Plan Additional Plan Night time TeleICU coverage Patient seen and evaluated using HIPPA complaint AV device Admitted for respiratory failure from PNA/Pleural effusion and pulmonary edema. On mechanical ventilation 40% fi02 S/P thoracenthesis Intubated and sedated Continue mechanical ventilation, BS abx Pressor support stress dose steriod SBT daily [id number] MD CRESENCIO Pierre,KRISTIN Beltran MD Mar 10, 2025 23:38
[2025-03-11] VITALS (49 sets, daily range): BP systolic 87–145; BP diastolic 42–83; PULSE 51–81; RESP 14–24; O2SAT 90–97
[2025-03-11] MEDS: dextrose 50%-water 50ml dispensing syringe IV PRN ×2 (02:09→08:36)
[2025-03-11 03:23] LABS: MEAN PLATELET VOLUME 7.2 FL (7.4-10.4); RED CELL DISTRIBUTION WIDTH 17.3 % (11.5-14.5)
[2025-03-11 03:28] LABS: OSMOLALITY UA 404 MOSM/K (50-1400)
[2025-03-11 03:33] LABS: CREATININE,URINE RANDOM 67.0 MG/DL; TOTAL PROTEIN,URINE RANDOM 164.6 MG/DL
[2025-03-11 03:50] LABS: CREATININE 1.98 MG/DL (0.40-0.90); PHOSPHORUS 4.5 MG/DL (2.3-4.5); TOTAL CARBON DIOXIDE 25.7 MMOL/L (24-32); eCRCL 25 ML/MIN; eGFR 25 ML/MIN
[2025-03-11 04:16] LABS: ABG BASE EXCESS -1.9 mmol/L (-2.0-3.0); ABG HCO3 23.5 mmol/L (21.0-28.0); ABG OXYGEN SATURATION 97.6 % (94.0-98.0); ABG PCO2 (T) 41.6 mmHg (32.0-45.0); ABG PH (T) 7.368 (7.350-7.450); ABG PO2 (T) 93.3 mmHg (83.0-108.0); ALLEN'S TEST Modified; FCOHb 1.2 % (0.5-1.5); FHHb 2.4 % (0.0-5.0); FIO2 50.0 mmHg/%; FMetHb 0.3 % (0.0-1.5); FO2Hb 96.1 % (94.0-98.0); MODE VENT - AC; PATIENT TEMPERATURE 36.4; PEEP 5 cm H2O; RESPIRATORY RATE 18 b/min; TIDAL VOLUME 400 mL; TOTAL HEMOGLOBIN 9.5 G/dl (12.0-16.0)
--- NOTE | 2025-03-11 06:07 | RADIOLOGY REPORT ---
CHEST RADIOGRAPH Indication: ET Tube PLacement Technique: Single frontal view of the chest was obtained Comparison: DI CHEST,SINGLE VIEW on DOS: 03/10/25 FINDINGS: Lines and Tubes: Tracheostomy tube is unchanged in position. There is a right central venous catheter with the tip terminating in the superior vena cava. Enteric tube terminates in the stomach. Lungs: There are stable by lateral airspace opacities. Pleura: Similar-appearing bilateral pleural effusions are noted. No pneumothorax. Cardiomediastinal contours: Stable Cardiovascular silhouette. Bones: No acute osseous abnormality. IMPRESSION: 1. No significant change in bilateral pleural effusions and bilateral airspace opacities. 2. Stable position of the support lines and tubes.
--- NOTE | 2025-03-11 11:10 | PROGRESS NOTE- Residence ---
Progress Note - Resident Providers to CC Resident Creating Document: MARK FULLER, RES ~ Antibiotic Timeout Antibiotic Ordered?: Yes Subjective The patient has been evaluated at the bedside today. Remains under mechanical ventilation through tracheostomy. Decreasing sedation. No evidence of melena or hematochezia reported. GI reconsulted for PEG tube. Objective Vital Signs Date Time Temp Pulse Resp B/P (MAP) Pulse Ox O2 Delivery O2 Flow Rate FiO2 03/11/25 11:00 69 22 95 Ventilator+ 45 03/11/25 10:57 116/39 03/11/25 10:03 98.2 03/07/25 09:38 9.0 Physical exam: General: Patient is currently under sedation due to mechanical ventilation through tracheostomy tube. HEENT: Conjunctive are pale, sclerae clear, no icterus, pupil is equal in both sides, reactive to light, no ear discharge, no pharyngeal erythema or an edema. Presence of NG tube in the right nostril. Neck: Supple, no adenopathy, thyromegaly. Trachea is midline. No JVD. Presence of central line in the right side of the neck. Presence of tracheostomy tube in the midline of the neck. Chest: Respiratory: Vesicular breath sounds. No ronchi, crepitus or wheezing. Resonance is normal upon percussion of all lung harmon. Cardiovascular: S1-S2 regular sinus rhythm and, regular rate, no gallops, no rubs, no murmurs Abdomen: No visible distention, Bowel sounds present on auscultation, on palpation: soft, nontender, no guarding, no rigidity. Extremities: No pitting edema bilaterally, capillary refill intact, peripheral pulsations are intact on both sides Neurologic: Mental status: Patient is currently under sedation due to mechanical ventilation. No further neurological assessment done due to underlying sedation. Negative Babinski. Skin: Warm and dry. Result Diagram: 03/11/25 0300 03/11/25 0300 Coagulation Studies Laboratory Tests Test 03/06/25 03:06 Prothrombin Time 12.5 SECONDS (9.0-12.0) H INR International Normalized Ratio 1.2 INR Activated Partial Thromboplast Time 28 SECONDS (22-32) Coagulation Comments Assessment Assessment 74-year-old female patient with history of throat cancer and previous tracheostomy admitted for evaluation and management of acute hypoxemic respiratory failure, suspected aspiration pneumonia. In view of the patient's once or in respiratory distress she was recannulated through tracheostomy, transferred to in ICU for further management. The patient has been treated appropriately by labor service representative team, GI was consulted due to the concern of severe anemia for which she required 4 units of blood, unknown etiology, suspected upper gastrointestinal bleeding. EGD permormed yesterday showed normal esophagus. Retained gastric fluid. Erythematous mucosa in the stomach. Biopsied. Normal duodenal bulb and second portion of the duodenum. No bleeding or potentially bleeding lesions were found in the upper GI tract. Plan for PEG tube today. Plan Plan EGD permormed yesterday showed normal esophagus. Retained gastric fluid. Erythematous mucosa in the stomach. Biopsied. Normal duodenal bulb and second portion of the duodenum. No bleeding or potentially bleeding lesions were found in the upper GI tract. Plan for PEG tube tomorrow. Colonoscopy deferred so far, no signs of hematochezia. Other comorbidities. Acute hypoxemic respiratory failure, aspiration pneumonia. Acute kidney injury on CKD stage 4. Hypernatremia. Hypokalemia. Paroxysmal AFib. Appropriately managed by labor service representative. Code status: Full code DVT prophylaxis: SCDs Analgesia/sedation: Acetaminophen and morphine. Line/tube: PIV, central line, NG tube GI prophylaxis: Protonix Nutrition: NPO. Prognosis: Guarded Mark Garcia Internal Medicine Resident [facility] Critical care time: 1 hour. Date of Service: Mar 11, 2025 Billing Provider: BASIM MANZANARES MD, FRANCO LUIS, RES Mar 11, 2025 11:10
[2025-03-11] MEDS: POTASSIUM CHLORIDE 20 MEQ/15 ML oral solution NG SCH (13:18)
[2025-03-11] MEDS: magnesium sulf-water 2g/50mL 50 ML IV ONE (13:18)
--- NOTE | 2025-03-11 13:34 | PROGRESS NOTE- Residence ---
Progress Note - Resident Providers to CC Resident Creating Document: DOMINIC TERRYTIKSONIA ~ Antibiotic Timeout Antibiotic Ordered?: Yes Subjective Patient seen and examined at the bedside today. Patient is intubated and mechanically ventilated. Is under sedation but is waking up with a minimal stimulation. No acute overnight events. Objective Vital Signs Date Time Temp Pulse Resp B/P (MAP) Pulse Ox O2 Delivery O2 Flow Rate FiO2 03/11/25 13:11 66 18 94 50 03/11/25 13:00 98.4 132/67 (88) Mechanical Ventilator 03/07/25 09:38 9.0 Result Diagram: 03/11/2529903/11/25299 General: Recannulated, sedated and put on mechanical ventilation. HEENT: Conjunctiva pink, Sclera clear, Mucus Membranes moist. Tracheostomy in place. Neck: Supple without masses and tenderness. Resp: Bilateral coarse breath sounds. Decreased breath sounds in the bilateral lower lung harmon. Heart: Regular Rate and rhythm, normal S1 and S2 without murmur, rub or gallop. Abdomen: Soft and non tender no organomegaly Extremities: No cyanosis,clubbing or edema. Skin: Warm and Dry. Neurology: Wakes up with minimal stimulation. Coagulation Studies Laboratory Tests Test 03/06/25 03:06 Prothrombin Time 12.5 SECONDS (9.0-12.0) H INR International Normalized Ratio 1.2 INR Activated Partial Thromboplast Time 28 SECONDS (22-32) Coagulation Comments Assessment Assessment 74 years old female with past medical history of chronic pain, hypertension, diabetes, history of laryngeal cancer status post tracheostomy was admitted in the hospital for evaluation and management of acute hypoxemic respiratory failure most likely secondary to aspiration pneumonia. In view of the patient's worsening respiratory distress the patient is currently transferred to the ICU for further care and management. Plan Plan Acute hypoxemic respiratory failure Aspirational pneumonia Septic shock The patient had to be recannulated in view of her worsening respiratory distress. Is continued on mechanical ventilation and with a FiO2 of 45%. RT evaluation and treatment. Continue albuterol 2.5 mg q.4 hours and Mucomyst inhalation q.4 hours. Stopped IV vancomycin and levofloxacin today. We will continue only on IV Zosyn. Has a blood culture and respiratory cultures so far has been negative. Continues to require low dose of norepinephrine. Continue midodrine 10 mg t.i.d.. Plan to wean the patient off of IV norepinephrine. And most likely we will discharge her to LTAC. In view of the patient's acute worsening of respiratory distress and possible requirement prolonged ventilation we are planning to get a PEG tube placed for the patient for nutrition. We will consult the channel account manager for PEG tube placement today. Pleural effusion Ultrasound guided right pleural effusion was identified. Thoracentesis was done and approximately 0.65 L of serous fluid was removed. The fluid was initially straw-colored and later turned bloody. Fluid analysis shows transudative fluid. Follow up with lipid panel, urinary lytes and protein. BJ on CKD stage 4 Hypernatremia Hypokalemia Most likely secondary to vasomotor nephropathy Was initially treated with IV fluids. Currently on hold. The creatinine is 1.98 and BUN is 28. Not improving much. The on-call collection technician Dr. Hackett has been consulted. Appreciate recommendations. Replacing potassium as per the protocol. The most likely cause of the patient's hypernatremia is dehydration. Increase free water flushes to 200 mL q.4 hours. We will continue to monitor the patient's electrolytes closely. Paroxysmal atrial fibrillation Currently the patient is in sinus rhythm. Goes in and out of atrial fibrillation. Started the patient on amiodarone 400 once daily currently. Planned to start 200 once daily after one week. Not on anticoagulation currently. Severe anemia Possible underlying upper GI bleed. Patient also has iron-deficiency anemia. The patient had an upper GI endoscopy by Dr. Hurtado. No active signs lesions of bleeding were noted. Continue IV Protonix 40 b.i.d. Consulted for a colonoscopy to evaluate any lower GI bleeding. Dr. Andrews recommended placing a PEG tube prior to colonoscopy for good bowel prep. Appreciate recommendations. Can consider IV iron infusion once sepsis is resolved. Nutrition Started the patient on tube feeds via NG tube. Consulted the crab fisher. Appreciate recommendations. Diabetes mellitus Started the patient on low-dose sliding scale of insulin. CODE STATUS: Full code DVT prophylaxis: SCDs GI prophylaxis: IV Protonix Diet: Tube feeds Disposition: Continue management in the intensive care unit. Dominic Terry MD Internal Medicine Resident, PGY-3 Date of Service: Mar 11, 2025 Billing Provider: LAKESHIA YUN MD,DOMINIC MCCULLOUGH, RES Mar 11, 2025 13:34
--- NOTE | 2025-03-11 14:48 | PROGRESS NOTE ---
Daily Progress Note Providers to CC ~ Antibiotic Timeout Antibiotic Ordered?: No Subjective Patient is seen in CICU not much responded to verbal commands. Objective Vital Signs Date Time Temp Pulse Resp B/P (MAP) Pulse Ox O2 Delivery O2 Flow Rate FiO2 03/11/25 14:00 59 17 121/62 (81) 92 Mechanical Ventilator 45 03/11/25 13:00 98.4 03/07/25 09:38 9.0 Result Diagram: 03/11/25 0300 03/11/25 0300 General- chronically ill-appearing, not responded to verbal commands , HEENT-atraumatic normocephalic, neck supple currently on mechanical ventilator, Eyes-no icterus or pallor seen in eyes Chest-coarse breath sounds to auscultation bilaterally, breathing nonlabored no tachypnea, Heart-S1-S2 normal, regular heart rate no murmur Abdomen bowel sounds positive on auscultation, soft nondistended nontender no guarding, no rigidity Neurology-patient is lethargic not responded to verbal commands Extremity- 1 plus pedal edema , not able to move all 4 extremities Coagulation Studies Laboratory Tests Test 03/06/25 03:06 Prothrombin Time 12.5 SECONDS (9.0-12.0) H INR International Normalized Ratio 1.2 INR Activated Partial Thromboplast Time 28 SECONDS (22-32) Coagulation Comments Problem\Assessment\Plan Patient is 74-year-old female with history of Chronic Pain, history of hypertension and diabetes.*CANCER*History of laryngectomy. patient had a history of throat cancer and had a trach placed in 2019. As per ER record. history of a trach who was brought in from home for weakness dyspnea and green sputum coming from her trach. The patient states she has been weak over the last 24 hours. # Patient is on norepinephrine drip . Dr. Fitzpatrick did bronchoscopy . Patient is admitted for sepsis due to bacterial/aspiration pneumonia plus UTI currently on IV antibiotics. Patient also has acute renal failure, anemia in paroxysmal atrial fibrillation. # Acute respiratory failure on mechanical ventilator CT chest showed- Diffuse bilateral pulmonary airspace consolidation and ground- glass disease, likely combination of infection/ pneumonia, edema and aspiration. Interlobular septal thickening consistent with edema.Obstruction of the right lower lobe bronchus with possible stent. Moderate bilateral pleural effusions. Right pleural effusion appears loculated. Mediastinal, axillary lymphadenopathy which can be secondary to infectious, inflammatory, neoplastic etiologies. Soft tissue edema/ anasarca. Ascites fluid. Other comorbidities include- Patient has severe anemia, hypokalemia, hypomagnesemia mildly elevated troponin BNP 1 0774. patient was about to get EGD for GI bleeding. We will continue to monitor patient's labs and vitals closely . All labs and diagnostic and care plan workup reviewed. Further management depending on response to treatment in his recommended by cat dog or other pet groomer team. I will continue to follow patient in a.m. Date of Service: Mar 11, 2025 Billing Provider: BAL GALAN MD Common Visit Codes: 66782-[id number] INP/OBS CARE(MOD) BAL GALAN MD Mar 11, 2025 14:48
--- NOTE | 2025-03-11 15:15 | RADIOLOGY REPORT ---
RENAL ULTRASOUND CLINICAL HISTORY: BJ TECHNIQUE: Multiple grayscale ultrasound images were obtained through the kidneys and urinary bladder. COMPARISON: None FINDINGS: Right kidney: Measures 12.4 x 4.1 x 5.2 cm. No hydronephrosis. Well-visualized. Left kidney: Measures 8.7 x 5.2 x 4.8 cm. No hydronephrosis. Urinary bladder: Unremarkable. Prevoid volume is 22.96 mL there appears to be a Perez in the urinary bladder. IMPRESSION: 1. Left kidney is not as well-visualized compared to the right appears smaller. 2. No hydronephrosis in either kidney.
--- NOTE | 2025-03-11 19:02 | CONSULTATION REPORT - RESIDENT ---
Consult Providers to CC Resident Creating Document: ITZEL JONES RES History of Present Illness Reason for Admit\Complaint: BJ History of Present Illness This is a 74-year-old female with a history of laryngeal cancer, previous tracheostomy, diabetes, hypertension presented to the hospital with a complaint of generalized weakness. Patient is admitted in the ICU and is being managed for acute hypoxemic respiratory failure secondary to aspiration pneumonia. The patient was recannulated in view of worsening respiratory distress, currently on ventilator with a FiO2 45%. Patient also being managed for septic shock, on IV norepinephrine which is slowly being weaned. With the possibility of requiring prolonged ventilation, peg tube placement has been planned. Initially on IV vancomycin and levofloxacin, now on IV Zosyn. Patient also had right-sided pleural effusion, thoracocentesis was done, fluid analysis showed transudative pleural fluid. Also has a atrial fibrillation, was started on amiodarone. Patient also has severe anemia likely secondary to GI bleed, EGD was done which showed no signs of bleeding. The nephrology team was consulted for BJ, creatinine at the time of admission was 2.76 which is slowly improving, today creatinine is 1.98. BUN is 28, bicarb 25.7, potassium 3.1 Total urine output days 838 mL. The baseline creatinine is not known. The BJ could be secondary to acute illness, septic shock. Allergies: Coded Allergies: codeine (Verified Allergy, Severe, 03/05/25) Home Medications Home Medications Active Reported Metformin HCl 1,000 Mg Tablet 1 Tab PO BIDWM Lisinopril 5 Mg Tablet 1 Tab PO DAILY Rosuvastatin Calcium 40 Mg Tablet 1 Tab PO DAILY Cetirizine HCl 10 Mg Tablet 1 Tab PO DAILY Past Medical History Past Medical History laryngeal cancer, previous tracheostomy, diabetes, hypertension Past Surgical History Surgical History Comment S/p tracheostomy due to laryngeal cancer. Exam Vitals: Vital Signs Date Time Temp Pulse Resp B/P (MAP) Pulse Ox O2 Delivery O2 Flow Rate FiO2 03/11/25 18:00 61 19 126/60 (82) 94 Mechanical Ventilator 40 03/11/25 17:00 98.2 03/07/25 09:38 9.0 General: General: Recannulated, sedated and put on mechanical ventilation. HEENT: Conjunctiva pink, Sclera clear, Mucus Membranes moist. Tracheostomy in place. Neck: Supple without masses and tenderness. Resp: Bilateral coarse breath sounds. Decreased breath sounds in the bilateral lower lung harmon. Heart: Regular Rate and rhythm, normal S1 and S2 without murmur, rub or gallop. Abdomen: Soft and non tender no organomegaly Extremities: No cyanosis,clubbing or edema. Skin: Warm and Dry. Neurology: Wakes up with minimal stimulation. Diagnostic Data Last Recorded Lab Results: 03/11/25 0300 03/11/25 0300 Diagnostic Data: Laboratory Tests Test 03/06/25 03:06 Prothrombin Time 12.5 SECONDS (9.0-12.0) H INR International Normalized Ratio 1.2 INR Activated Partial Thromboplast Time 28 SECONDS (22-32) Coagulation Comments Additional Plan PLAN BJ, possibly underlying CKD Creatinine today is 1.98, improved from 2.76 at the time of admission Baseline creatinine is not known BUN 28, BUN/creatinine 14.1, GFR 25 Urine electrolytes show, urine sodium<15, FeNa-0.3%,-indicating prerenal Urine protein, 164, possible underlying diabetic nephropathy Urine output 838 mL. Renal ultrasound showed no hydronephrosis. Strict I&Os Avoid nephrotoxin agents. Septic shock Aspiration pneumonia History of laryngeal cancer s/p tracheostomy Tracheostomy has been decannulated for worsening respiratory distress. On mechanical ventilator, FiO2 of 45 On IV Zosyn. On low-dose of norepinephrine. Thoracocentesis was done, drained about 0.65 L of serous fluid, transudative Paroxysmal AFib On amiodarone 400 mg daily Not on any anticoagulation. Anemia 4 units of PRBC has been transfused Current hemoglobin 9.0 EGD was done, no signs of bleeding On IV Protonix 40 b.i.d. Patient is being evaluated for PEG tube placement. Nutrition On tube feeds via NG tube Type 2 diabetes mellitus A1c ordered Patient needs to be evaluated for diabetic nephropathy Itzel Jones M.D PGy2 Nephrology Resident Nephrology attending: Patient seen and examined.agree with resident's note abvoe. care plan reviewed. no hydronephrosis in renal US. creatinine is slowly getting better. possibly it may plateau. will closely monitor. review UA to rule out ATN. check urine lytes and check FeNA. \ Sven leavitt MD Date of Service: Mar 11, 2025 Billing Provider: SVEN LEAVITT MD, PRAVAHIKA, RES Mar 11, 2025 19:02 SVEN LEAVITT MD Mar 11, 2025 20:59
[2025-03-12] VITALS (52 sets, daily range): BP systolic 122–183; BP diastolic 60–86; PULSE 63–89; RESP 16–26; O2SAT 92–96
[2025-03-12 03:19] LABS: CHOL/HDL RATIO 2.6 (0.00-4.99); CREATININE 1.92 MG/DL (0.40-0.90); LDL CHOLESTEROL 58 MG/DL (50-100); PHOSPHORUS 4.2 MG/DL (2.3-4.5); TOTAL CARBON DIOXIDE 26.4 MMOL/L (24-32); eCRCL 25 ML/MIN; eGFR 26 ML/MIN
[2025-03-12 03:21] LABS: MEAN PLATELET VOLUME 7.5 FL (7.4-10.4); RED CELL DISTRIBUTION WIDTH 16.8 % (11.5-14.5)
[2025-03-12 04:49] LABS: ABG BASE EXCESS 1.0 mmol/L (-2.0-3.0); ABG HCO3 24.7 mmol/L (21.0-28.0); ABG OXYGEN SATURATION 94.6 % (94.0-98.0); ABG PCO2 (T) 34.7 mmHg (32.0-45.0); ABG PH (T) 7.468 (7.350-7.450); ABG PO2 (T) 69.9 mmHg (83.0-108.0); ALLEN'S TEST Modified; FCOHb 1.4 % (0.5-1.5); FHHb 5.3 % (0.0-5.0); FIO2 40.0 mmHg/%; FMetHb 0.3 % (0.0-1.5); FO2Hb 93.0 % (94.0-98.0); MODE VENT - AC; PATIENT TEMPERATURE 36.5; PEEP 5 cm H2O; RESPIRATORY RATE 18 b/min; TIDAL VOLUME 400 mL; TOTAL HEMOGLOBIN 9.6 G/dl (12.0-16.0)
[2025-03-12 04:59] LABS: LYMPHOCYTES % (MANUAL) 8.0 % (21-51); METAMYLEOCYTES% (MANUAL) 1.0 % (0-0); MONOCYTES % (MANUAL) 5.0 % (2-12); NEUTROPHILS % (MANUAL) 86.0 % (42-75)
[2025-03-12 05:00] LABS: PLATELET ESTIMATE NORMAL
--- NOTE | 2025-03-12 06:34 | RADIOLOGY REPORT ---
CHEST RADIOGRAPH Indication: ET Tube PLacement Technique: Single frontal view of the chest was obtained COMPARISON: DI CHEST,SINGLE VIEW on DOS: 03/11/25, DI CHEST,SINGLE VIEW on DOS: 03/10/25, DI CHEST,SINGLE VIEW on DOS: 03/09/25, DI CHEST,SINGLE VIEW on DOS: 03/09/25, DI CHEST,SINGLE VIEW on DOS: 03/08/25 FINDINGS: Lines and Tubes: Unchanged. Lungs: Stable appearing bilateral pleural effusions and bibasilar pulmonary airspace disease. No pneumothorax. Cardiomediastinal contours: Cardiomegaly. Bones: Unremarkable IMPRESSION: 1. Stable bilateral pleural effusions and bibasilar pulmonary airspace disease. 2. Cardiomegaly. 3. Lines and tubes unchanged.
[2025-03-12] MEDS ORDERED: propofol inj 0 ML IV ONE (09:40)
[2025-03-12] MEDS ORDERED: propofol inj 20 ML IV ONE ×2 (10:02)
--- NOTE | 2025-03-12 11:24 | PROGRESS NOTE ---
Subjective Subjective Patient seen and examined at the bedside today.Patient remains mechanically ventilated via tracheostomy. Is under sedation but is waking up with a minimal stimulation. No acute overnight events. Reason for visit: Pulmonary critical care follow-up Reviewed: Care Plan, H&P, Labs, Radiology Review of Systems Changes from previous H/P or p: No Changes Daily Progress Note Exam Vitals Vital Signs Date Time Temp Pulse Resp B/P (MAP) Pulse Ox O2 Delivery O2 Flow Rate FiO2 03/12/25 11:04 97.9 76 23 132/69 (90) 93 Mechanical Ventilator 55 Result Diagram: 03/12/2521203/12/25212 Exam General: Recannulated, sedated and put on mechanical ventilation. HEENT: Conjunctiva pink, Sclera clear, Mucus Membranes moist. Tracheostomy in place. Neck: Supple without masses and tenderness. Resp: Bilateral coarse breath sounds. Decreased breath sounds in the bilateral lower lung harmon. Heart: Regular Rate and rhythm, normal S1 and S2 without murmur, rub or gallop. Abdomen: Soft and non tender no organomegaly Extremities: No cyanosis,clubbing or edema. Skin: Warm and Dry. Neurology: Awake and tracking objects in his surrounding. Not commanding. Results Coagulation Studies Laboratory Tests Test 03/06/25 03:06 Prothrombin Time 12.5 SECONDS (9.0-12.0) H INR International Normalized Ratio 1.2 INR Activated Partial Thromboplast Time 28 SECONDS (22-32) Coagulation Comments VTE VTE Risk Score VTE Risk Score Reference Ranges: Score 0-1 = Low Risk (Aggressive mobilization; early ambulation; no VTE prophylaxis required) Score 2: Moderate Risk (Intermittent/Pneumatic Compression Device OR Lovenox/Heparin/Coumadin) Score 3-4: High Risk (Intermittent/Pneumatic Compression Device AND Lovenox/Heparin/Coumadin) Score > or = 5: Highest Risk (Intermittent/Pneumatic Compression Device AND Lovenox/Heparin/Coumadin) Assessment/Plan Assessment Acute hypoxemic respiratory failure: Ventilated via tracheostomy. Tolerating spontaneous breathing trial with PSV 02/28/2040 5%. Pneumonia : On antibiotic therapy with piperacillin tazobactam. Vancomycin was discontinued. Septic shock: Remains on norepinephrine at 0.03 mcg/kg per minute. Pleural effusion: Status post ultrasound-guided right chest thoracentesis. BJ on CKD stage 4 : Currently on CRRT. Hypernatremia: Improving. Hypokalemia: Potassium 3.5 today. Paroxysmal atrial fibrillation: Remains on amiodarone 0.5 mg per minute. Severe anemia Nutrition color on TPN at 66 mL/hour, albumin 75 mL/hour. Discontinue D10 W currently running at 75 mL/hour once tube feedings resumed at goal. Diabetes mellitus: Low-dose sliding scale insulin. CODE STATUS: Full code DVT prophylaxis: SCDs GI prophylaxis: IV Protonix Diet: Status post PEG tube placement 03/12/2025. May resume tube feedings at goal rate. Disposition: Continue management in the intensive care unit. We will be discharged to the LTAC next week. Plan EGD permormed yesterday showed normal esophagus. Retained gastric fluid. Erythematous mucosa in the stomach. Biopsied. Normal duodenal bulb and second portion of the duodenum. No bleeding or potentially bleeding lesions were found in the upper GI tract. Plan for PEG tube tomorrow. Colonoscopy deferred so far, no signs of hematochezia. Other comorbidities. Acute hypoxemic respiratory failure, aspiration pneumonia. Acute kidney injury on CKD stage 4. Hypernatremia. Hypokalemia. Paroxysmal AFib. Appropriately managed by linux developer. Code status: Full code DVT prophylaxis: SCDs Analgesia/sedation: Acetaminophen and morphine. Line/tube: PIV, central line, NG tube GI prophylaxis: Protonix Nutrition: NPO. Prognosis: Guarded Mark Garcia Internal Medicine Resident [facility] Critical care time: 1 hour. Expected Outcome/Goals Expected Outcomes/Goals: maintain stable wt, tolerance to TF, bowel regularity, optimal skin integrity LAKESHIA YUN MD Mar 12, 2025 11:24
--- NOTE | 2025-03-12 14:47 | PROGRESS NOTE ---
Progress Note Dictate Providers to CC ~ Central Line/PICC still needed: Yes Central Line/PICC Necessity: Prolonged IV access req Perez Indications Met/Not Met: F/C Indications Met Antibiotic Ordered?: Yes Subjective Subjective Thid 74 year old woman is getting fluid overloaded. remains on tess ventilator at 55% FiO2. needs to be diuresed. has some edema now. creatinine remains stable. disucssed with rN and will proceed with lasix bid for now. add zaroxolyn temporariily for some aggressive diuresis. CXR reviewed. Objective Vitals Vital Signs Date Time Temp Pulse Resp B/P (MAP) Pulse Ox O2 Delivery O2 Flow Rate FiO2 03/12/25 13:58 98.1 80 26 139/79 (99) 93 Mechanical Ventilator 55 Lab Results: 03/12/25 0213 03/12/25 0213 Objective Vital Signs: As above, remains on tess ventilator and has trach chronically General: Normal body habitus, Skin: No rashes, lumps, ulcers, blisters, purpura or petechiae HEENT: Anicteric sclera, SAMANTA Neck: Supple and nontender without enlargement of the thyroid, or lymphadenopathy. Chest: Normal size and shape, no tenderness, CTA bilaterally Heart: Regular. No jugular venous distention, S1 and S2 heard , no gallop Abdomen: Soft and non tender no organomegaly,BS+ Extremities: +++ pedal edema Neuro: Nonfocal. Coagulation Studies Laboratory Tests Test 03/06/25 03:06 Prothrombin Time 12.5 SECONDS (9.0-12.0) H INR International Normalized Ratio 1.2 INR Activated Partial Thromboplast Time 28 SECONDS (22-32) Coagulation Comments Advance Care Planning Advanced Care plannin - 30 Minutes Problem\Assessment\Plan Problems/Diagnosis: (1) Acute respiratory failure Assessment & Plan: has chronic trach. remains on the ventilator. needs to be diuresed. will proceed with lasix and zaroxolyn for now. (2) Acute kidney injury Assessment & Plan: creatinine stabilized but she is getting volume overloaded. as above (3) Anemia Additional Plan check iron profile and give retacrit to aim for hb of 10.5 g/dl Problem Qualifiers (1) Anemia: Qualified Codes: D64.9 - Anemia, unspecified JUANJO NAVARRO MD Mar 12, 2025 14:47
[2025-03-12] MEDS: EPOETIN ALFA-EPBX 20,000 UNIT/ML 1 ML MDV SQ ONE (15:34)
--- NOTE | 2025-03-12 19:32 | PROGRESS NOTE ---
Daily Progress Note Providers to CC ~ Antibiotic Timeout Antibiotic Ordered?: Yes Subjective The patient is minimally responsive to verbal communication and is status post PEG tube placement for which the patient's oxygen demand increased significantly from 45% on a trach collar now on 60% O2 Objective Vital Signs Date Time Temp Pulse Resp B/P (MAP) Pulse Ox O2 Delivery O2 Flow Rate FiO2 03/12/25 19:19 80 25 94 60 03/12/25 18:33 145/74 (97) Mechanical Ventilator 03/12/25 17:43 97.0 Result Diagram: 03/12/25 0213 03/12/25 021 Gen. No acute distress alert and oriented 4 Lungs clear to ascultation bilaterally, no wheezes rales or rhonchi appreciated Heart normal sinus rhythm no murmurs rubs or clicks noted Abdomen soft nontender bowel sounds are normoactive Lower extremities no clubbing cyanosis, nor edema appreciated bilaterally Coagulation Studies Laboratory Tests Test 03/06/25 03:06 Prothrombin Time 12.5 SECONDS (9.0-12.0) H INR International Normalized Ratio 1.2 INR Activated Partial Thromboplast Time 28 SECONDS (22-32) Coagulation Comments Problem\Assessment\Plan Patient is 74-year-old female with history of Chronic Pain, history of hypertension and diabetes.*CANCER*History of laryngectomy. patient had a history of throat cancer and had a trach placed in 2019. As per ER record. history of a trach who was brought in from home for weakness dyspnea and green sputum coming from her trach. The patient states she has been weak over the last 24 hours. # septic shock # Acute respiratory failure likely secondary to aspiration pneumonia on mechanical ventilator CT chest showed- Diffuse bilateral pulmonary airspace consolidation and ground- glass disease, likely combination of infection/ pneumonia, edema and aspiration. Interlobular septal thickening consistent with edema.Obstruction of the right lower lobe bronchus with possible stent. Moderate bilateral pleural effusions. Right pleural effusion appears loculated. Mediastinal, axillary lymphadenopathy which can be secondary to infectious, inflammatory, neoplastic etiologies. Soft tissue edema/ anasarca. Ascites fluid. Status post bronchoscopy with Dr. Barton 03/12 oxygen demand went up status post PEG tube placement, norepinephrine drip remains on IV Zosyn # BJ possibly secondary to to ATN Followed by Nephrology Dr. Zavaleta and is improving # nutrition On TPN Status post PEG tube placement by Gastroenterology Dr. Hankins on 03/12/2025 Other comorbidities include- Patient has severe anemia, hypokalemia, hypomagnesemia mildly elevated troponin BNP 1 0774. # atrial fibrillation Norepinephrine drip # hypernatremia Resolved Continue monitor daily labs # hypokalemia On potassium replacement protocol # DVT prophylaxis SQ heparin Date of Service: Mar 12, 2025 Billing Provider: GULSHAN LINDQIUST DO Common Visit Codes: [id number] INP/OBS CARE(HIGH) GULSHAN LINDQUIST DO Mar 12, 2025 19:32
[2025-03-13] VITALS (45 sets, daily range): BP systolic 123–152; BP diastolic 58–91; PULSE 47–92; RESP 18–29; O2SAT 93–97
[2025-03-13 02:46] LABS: MEAN PLATELET VOLUME 7.4 FL (7.4-10.4); RED CELL DISTRIBUTION WIDTH 16.8 % (11.5-14.5)
[2025-03-13 02:59] LABS: CREATININE 1.89 MG/DL (0.40-0.90); PHOSPHORUS 3.8 MG/DL (2.3-4.5); TOTAL CARBON DIOXIDE 30.8 MMOL/L (24-32); eCRCL 26 ML/MIN; eGFR 26 ML/MIN
[2025-03-13 03:57] LABS: ABG BASE EXCESS 3.3 mmol/L (-2.0-3.0); ABG HCO3 26.2 mmol/L (21.0-28.0); ABG OXYGEN SATURATION 94.9 % (94.0-98.0); ABG PCO2 (T) 33.0 mmHg (32.0-45.0); ABG PH (T) 7.516 (7.350-7.450); ABG PO2 (T) 75.0 mmHg (83.0-108.0); ALLEN'S TEST Modified; FCOHb 1.1 % (0.5-1.5); FHHb 5.0 % (0.0-5.0); FIO2 70.0 mmHg/%; FMetHb 0.3 % (0.0-1.5); FO2Hb 93.6 % (94.0-98.0); MODE PRVC; PATIENT TEMPERATURE 36.8; PEEP 5 cm H2O; RESPIRATORY RATE 16 b/min; TIDAL VOLUME 400 mL; TOTAL HEMOGLOBIN 9.5 G/dl (12.0-16.0)
[2025-03-13] MEDS: POTASSIUM CL IV ONE (04:50)
--- NOTE | 2025-03-13 06:07 | RADIOLOGY REPORT ---
CHEST RADIOGRAPH Indication: ET Tube PLacement Technique: Single frontal view of the chest was obtained Comparison: DI CHEST,SINGLE VIEW on DOS: 03/12/25, DI CHEST,SINGLE VIEW on DOS: 03/11/25, DI CHEST,SINGLE VIEW on DOS: 03/10/25 IMPRESSION: No significant interval change. Prominent cardiac silhouette. Bilateral airspace opacities and bilateral pleural effusions, right greater than left. Enteric tube has been removed. Tracheostomy and right IJ catheter appear unchanged.
--- NOTE | 2025-03-13 07:45 | PROGRESS NOTE ---
Progress Note Dictate Providers to CC ~ Central Line/PICC still needed: Yes Central Line/PICC Necessity: Prolonged IV access req Perez Indications Met/Not Met: F/C Indications Met Antibiotic Ordered?: Yes Subjective Subjective excellente diuresis so far. potassium being chased. CVP better. FiO2 down to 60% Objective Vitals Vital Signs Date Time Temp Pulse Resp B/P (MAP) Pulse Ox O2 Delivery O2 Flow Rate FiO2 03/13/25 18:00 47 18 151/73 (99) 95 Mechanical Ventilator 60 03/13/25 16:00 98.4 Lab Results: 03/13/25 0200 03/13/25 0200 Objective Vital Signs: As above, remains on tess ventilator and has trach chronically General: Normal body habitus, Skin: No rashes, lumps, ulcers, blisters, purpura or petechiae HEENT: Anicteric sclera, SAMANTA Neck: Supple and nontender without enlargement of the thyroid, or lymphadenopathy. Chest: Normal size and shape, no tenderness, CTA bilaterally Heart: Regular. No jugular venous distention, S1 and S2 heard , no gallop Abdomen: Soft and non tender no organomegaly,BS+ Extremities: +++ pedal edema Neuro: Nonfocal. Coagulation Studies Laboratory Tests Test 03/06/25 03:06 Prothrombin Time 12.5 SECONDS (9.0-12.0) H INR International Normalized Ratio 1.2 INR Activated Partial Thromboplast Time 28 SECONDS (22-32) Coagulation Comments Advance Care Planning Advanced Care plannin - 30 Minutes Problem\Assessment\Plan Problems/Diagnosis: (1) Acute respiratory failure Assessment & Plan: has chronic trach. remains on the ventilator. needs to be diuresed. will proceed with lasix and zaroxolyn for now. (2) Acute kidney injury Assessment & Plan: creatinine stabilized but she is getting volume overloaded. as above (3) Anemia Assessment & Plan: retacrit prn Problem Qualifiers (1) Anemia: Qualified Codes: D64.9 - Anemia, unspecified JUANJO NAVARRO MD Mar 13, 2025 07:45
--- NOTE | 2025-03-13 10:27 | PROGRESS NOTE ---
Subjective Subjective Patient seen and examined at the bedside today.Patient remains mechanically ventilated via tracheostomy. Is under sedation but is waking up with a minimal stimulation. No acute overnight events. Reason for visit: Pulmonary critical care follow-up Reviewed: Care Plan, H&P, Labs, Radiology Daily Progress Note Exam Vitals Vital Signs Date Time Temp Pulse Resp B/P (MAP) Pulse Ox O2 Delivery O2 Flow Rate FiO2 03/13/25 09:15 81 26 96 70 03/13/25 07:18 Mechanical Ventilator 03/13/25 07:00 98.6 142/80 (100) Result Diagram: 03/13/2519903/13/25199 Exam General: Recannulated, sedated and put on mechanical ventilation. HEENT: Conjunctiva pink, Sclera clear, Mucus Membranes moist. Tracheostomy in place. Neck: Supple without masses and tenderness. Resp: Bilateral coarse breath sounds. Decreased breath sounds in the bilateral lower lung harmon. Heart: Regular Rate and rhythm, normal S1 and S2 without murmur, rub or gallop. Abdomen: Soft and non tender no organomegaly Extremities: No cyanosis,clubbing or edema. Skin: Warm and Dry. Neurology: Awake and tracking objects in his surrounding. Not commanding. Results Coagulation Studies Laboratory Tests Test 03/06/25 03:06 Prothrombin Time 12.5 SECONDS (9.0-12.0) H INR International Normalized Ratio 1.2 INR Activated Partial Thromboplast Time 28 SECONDS (22-32) Coagulation Comments VTE VTE Risk Score VTE Risk Score Reference Ranges: Score 0-1 = Low Risk (Aggressive mobilization; early ambulation; no VTE prophylaxis required) Score 2: Moderate Risk (Intermittent/Pneumatic Compression Device OR Lovenox/Heparin/Coumadin) Score 3-4: High Risk (Intermittent/Pneumatic Compression Device AND Lovenox/Heparin/Coumadin) Score > or = 5: Highest Risk (Intermittent/Pneumatic Compression Device AND Lovenox/Heparin/Coumadin) Assessment/Plan Assessment Acute hypoxemic respiratory failure: Ventilated via tracheostomy. Tolerating spontaneous breathing trial with PSV 02/28/2040 5%. Pneumonia : On antibiotic therapy with piperacillin tazobactam. Vancomycin was discontinued. Septic shock: Remains on norepinephrine at 0.03 mcg/kg per minute. Pleural effusion: Status post ultrasound-guided right chest thoracentesis. BJ on CKD stage 4 : Currently on CRRT. Hypernatremia: Improving. Hypokalemia: Potassium 3.5 today. Paroxysmal atrial fibrillation: Remains on amiodarone 0.5 mg per minute. Severe anemia Nutrition color on TPN at 66 mL/hour, albumin 75 mL/hour. Discontinue D10 W currently running at 75 mL/hour once tube feedings resumed at goal. Diabetes mellitus: Low-dose sliding scale insulin. CODE STATUS: Full code DVT prophylaxis: SCDs GI prophylaxis: IV Protonix Diet: Status post PEG tube placement 03/12/2025. May resume tube feedings at goal rate. Disposition: Continue management in the intensive care unit. We will be discharged to the LTAC next week. Plan Acute hypoxemic respiratory failure: This has been interval worsening of oxygenation. Currently on 70% FiO2. Chest x-ray showing worsening pulmonary infiltrates. Ventilated via tracheostomy. Vent settings AC/VC 16/400/5/70% FiO2. We will try to diurese the patient. Pneumonia : On antibiotic therapy with piperacillin tazobactam. Vancomycin was discontinued. Septic shock: Now off pressors. Cultures have remained without any growth. On Zosyn. Still on hydrocortisone 100 mg IV q.8 hours. Pleural effusion: Status post ultrasound-guided right chest thoracentesis. BJ on CKD stage 4 : Hypernatremia: Resolved with free water. Hypokalemia: Potassium 2.8 today. Paroxysmal atrial fibrillation: On amiodarone 200 mg per tube daily. Severe anemia Nutrition : Vital AF at 75 mL/hour. Code status: Full code DVT prophylaxis: SCDs Analgesia/sedation: Acetaminophen and morphine. Line/tube: PIV, central line, NG tube GI prophylaxis: Protonix Nutrition: Vital AF 1.2 at 75 mL/hour. Peg tube placed 03/12/2025. Prognosis: Guarded Disposition: Continue management in the intensive care unit. We will be discharged to the LTAC next week. Critical care time 35 minutes. Expected Outcome/Goals Expected Outcomes/Goals: maintain stable wt, tolerance to TF, bowel regularity, optimal skin integrity LAKESHIA YUN MD Mar 13, 2025 10:27
[2025-03-13] MEDS: acetaminophen 325mg/10.15ml oral unit dose solution NG PRN (13:21)
[2025-03-13] MEDS: POTASSIUM CHLORIDE 20 MEQ/15 ML oral solution PO SCH (14:07)
--- NOTE | 2025-03-13 18:51 | PROGRESS NOTE ---
Daily Progress Note Providers to CC ~ Antibiotic Timeout Antibiotic Ordered?: Yes Subjective The patient is oxygen demand remains elevated from prior PEG tube placement. The patient remains on a ventilator on 60% oxygen Objective Vital Signs Date Time Temp Pulse Resp B/P (MAP) Pulse Ox O2 Delivery O2 Flow Rate FiO2 03/13/25 18:00 47 18 151/73 (99) 95 Mechanical Ventilator 60 03/13/25 16:00 98.4 Result Diagram: 03/13/25 0200 03/13/25 0200 Gen. No acute distress alert and oriented 4 Lungs clear to ascultation bilaterally, no wheezes rales or rhonchi appreciated Heart normal sinus rhythm no murmurs rubs or clicks noted Abdomen soft nontender bowel sounds are normoactive Lower extremities no clubbing cyanosis, nor edema appreciated bilaterally Coagulation Studies Laboratory Tests Test 03/06/25 03:06 Prothrombin Time 12.5 SECONDS (9.0-12.0) H INR International Normalized Ratio 1.2 INR Activated Partial Thromboplast Time 28 SECONDS (22-32) Coagulation Comments Problem\Assessment\Plan Patient is 74-year-old female with history of Chronic Pain, history of hypertension and diabetes.*CANCER*History of laryngectomy. patient had a history of throat cancer and had a trach placed in 2019. As per ER record. history of a trach who was brought in from home for weakness dyspnea and green sputum coming from her trach. The patient states she has been weak over the last 24 hours. # septic shock # Acute respiratory failure likely secondary to aspiration pneumonia on mechanical ventilator CT chest showed- Diffuse bilateral pulmonary airspace consolidation and ground- glass disease, likely combination of infection/ pneumonia, edema and aspiration. Interlobular septal thickening consistent with edema.Obstruction of the right lower lobe bronchus with possible stent. Moderate bilateral pleural effusions. Right pleural effusion appears loculated. Mediastinal, axillary lymphadenopathy which can be secondary to infectious, inflammatory, neoplastic etiologies. Soft tissue edema/ anasarca. Ascites fluid. Status post bronchoscopy with Dr. Barton 03/12 oxygen demand went up status post PEG tube placement, norepinephrine drip remains on IV Zosyn 03/13 oxygen demand remains increased from prior to PEG tube placement- norepinephrine drip has been discontinued the patient remains on IV Zosyn # BJ possibly secondary to to ATN Followed by Nephrology Dr. Zavaleta and is improving # nutrition On TPN Status post PEG tube placement by Gastroenterology Dr. Hankins on 03/12/2025 Other comorbidities include- Patient has severe anemia, hypokalemia, hypomagnesemia mildly elevated troponin BNP 98323. # atrial fibrillation Amiodarone drip has been discontinued On p.o. amiodarone via NG tube # hypernatremia Resolved Continue monitor daily labs # hypokalemia On potassium replacement protocol # DVT prophylaxis SQ heparin Date of Service: Mar 13, 2025 Billing Provider: GULSHAN LINDQUIST DO Common Visit Codes: [id number] INP/OBS CARE(HIGH) GULSHAN LINDQUIST DO Mar 13, 2025 18:51
[2025-03-13] MEDS ORDERED: diazepam inj 5 MG/ML inj. IV PRN (19:25)
[2025-03-13 19:59] LABS: CREATININE 1.93 MG/DL (0.40-0.90); PHOSPHORUS 3.6 MG/DL (2.3-4.5); TOTAL CARBON DIOXIDE 30.9 MMOL/L (24-32); eCRCL 25 ML/MIN; eGFR 25 ML/MIN
[2025-03-13] MEDS: POTASSIUM CHLORIDE 20 MEQ/15 ML oral solution NG SCH (20:00)
[2025-03-13] MEDS: levetiracetam inj 750 MG in normal saline 100ml IV soln 100 ML IV SCH (20:11)
[2025-03-13] MEDS: EPOETIN ALFA-EPBX 20,000 UNIT/ML 1 ML MDV SQ ONE (20:12)
[2025-03-13] MEDS: magnesium sulf-water 4G/100mL 100 ML IV PRN (20:37)
[2025-03-13] MEDS: HYDROmorphone inj. 0.5 MG/0.5 ML DISP.SYRIN IV PRN (23:49)
[2025-03-14] VITALS (31 sets, daily range): BP systolic 107–147; BP diastolic 56–89; PULSE 44–76; RESP 13–25; O2SAT 92–99
[2025-03-14 01:14] LABS: MEAN PLATELET VOLUME 7.3 FL (7.4-10.4); RED CELL DISTRIBUTION WIDTH 16.9 % (11.5-14.5)
[2025-03-14 01:29] LABS: CREATININE 2.02 MG/DL (0.40-0.90); PHOSPHORUS 3.2 MG/DL (2.3-4.5); TOTAL CARBON DIOXIDE 32.4 MMOL/L (24-32); eCRCL 24 ML/MIN; eGFR 24 ML/MIN
[2025-03-14 02:43] LABS: LYMPHOCYTES % (MANUAL) 9.0 % (21-51); METAMYLEOCYTES% (MANUAL) 1.0 % (0-0); MONOCYTES % (MANUAL) 7.0 % (2-12); NEUTROPHILS % (MANUAL) 83.0 % (42-75); NUCLEATED RED BLOOD CELLS 1 /100WBC (0-0); PLATELET ESTIMATE NORMAL
[2025-03-14 03:44] LABS: ABG BASE EXCESS 6.8 mmol/L (-2.0-3.0); ABG HCO3 29.5 mmol/L (21.0-28.0); ABG OXYGEN SATURATION 95.9 % (94.0-98.0); ABG PCO2 (T) 34.3 mmHg (32.0-45.0); ABG PH (T) 7.551 (7.350-7.450); ABG PO2 (T) 77.9 mmHg (83.0-108.0); ALLEN'S TEST Modified; FCOHb 1.3 % (0.5-1.5); FHHb 4.0 % (0.0-5.0); FIO2 60.0 mmHg/%; FMetHb 0.3 % (0.0-1.5); FO2Hb 94.4 % (94.0-98.0); MODE PRVC; PATIENT TEMPERATURE 36.5; PEEP 5 cm H2O; RESPIRATORY RATE 16 b/min; TIDAL VOLUME 400 mL; TOTAL HEMOGLOBIN 9.7 G/dl (12.0-16.0)
--- NOTE | 2025-03-14 05:50 | RADIOLOGY REPORT ---
CHEST RADIOGRAPH Indication: ET Tube PLacement Technique: Single frontal view of the chest was obtained COMPARISON: DI CHEST,SINGLE VIEW on DOS: 03/13/25, DI CHEST,SINGLE VIEW on DOS: 03/12/25, DI CHEST,SINGLE VIEW on DOS: 03/11/25, DI CHEST,SINGLE VIEW on DOS: 03/10/25, DI CHEST,SINGLE VIEW on DOS: 03/09/25 FINDINGS: Lines and Tubes: Unchanged. Lungs: Stable appearing bilateral pleural effusions and bilateral lower lung zone pulmonary airspace disease. No pneumothorax. Cardiomediastinal contours: Unremarkable Bones: Unremarkable IMPRESSION: 1. Stable appearing bilateral pleural effusions and bilateral lower lung zone pulmonary airspace disease. 2. Lines and tubes unchanged.
--- NOTE | 2025-03-14 08:22 | PROGRESS NOTE ---
Progress Note Dictate Providers to CC ~ Central Line/PICC still needed: Yes Central Line/PICC Necessity: Prolonged IV access req Perez Indications Met/Not Met: F/C Indications Met Antibiotic Ordered?: Yes Subjective Subjective The patient has diuresed heavily. CXR still shows some layering pleural effusions. Her creatinine has started rising, back to 2 today. -ve 8000 ml last 24 hours and already > 1000 cc negative fluid balance today. discussed with . I put a hold on the diuretics. But icu team is interested in diuresing a bit more to help with the ventilator assistance and weaning. We just have to be prepared if the creatinine starts creeping up again. Objective Vitals Vital Signs Date Time Temp Pulse Resp B/P (MAP) Pulse Ox O2 Delivery O2 Flow Rate FiO2 03/14/25 11:47 20 60 03/14/25 11:00 75 124/63 (83) 92 Mechanical Ventilator 03/14/25 08:00 97.5 Lab Results: 03/14/25 0100 03/14/25 0100 Objective Vital Signs: As above, remains on tess ventilator and has trach chronically General: Normal body habitus, Skin: No rashes, lumps, ulcers, blisters, purpura or petechiae HEENT: Anicteric sclera, SAMANTA Neck: Supple and nontender without enlargement of the thyroid, or lymphadenopathy. Chest: Normal size and shape, no tenderness, CTA bilaterally Heart: Regular. No jugular venous distention, S1 and S2 heard , no gallop Abdomen: Soft and non tender no organomegaly,BS+ Extremities: +++ pedal edema Neuro: Nonfocal. Coagulation Studies Laboratory Tests Test 03/06/25 03:06 Prothrombin Time 12.5 SECONDS (9.0-12.0) H INR International Normalized Ratio 1.2 INR Activated Partial Thromboplast Time 28 SECONDS (22-32) Coagulation Comments Advance Care Planning Advanced Care plannin - 30 Minutes Problem\Assessment\Plan Problems/Diagnosis: (1) Acute respiratory failure Assessment & Plan: has chronic trach. remains on the ventilator. diuresed effectively last few days. Defer decision about further diuretics to icu team. caution about the slowly rising creatinine. stopped zroxolyn (2) Acute kidney injury Assessment & Plan: creatinine has started increaseing after the aggressive diuresis. I have hence put a hold on lasix until and stopped the metolazone. (3) Anemia Assessment & Plan: retacrit prn Problem Qualifiers (1) Anemia: Qualified Codes: D64.9 - Anemia, unspecified JUANJO NAVARRO MD Mar 14, 2025 08:22
--- NOTE | 2025-03-14 11:35 | PROGRESS NOTE ---
Subjective Subjective Patient seen and examined at the bedside today.Patient remains mechanically ventilated via tracheostomy. She is awake and thrashing around which seems to be her baseline. Reason for visit: Pulmonary critical care follow-up Reviewed: Care Plan, H&P, Labs, Radiology Review of Systems Changes from previous H/P or p: No Changes Daily Progress Note Exam Vitals Vital Signs Date Time Temp Pulse Resp B/P (MAP) Pulse Ox O2 Delivery O2 Flow Rate FiO2 03/14/25 10:39 51 19 Mechanical Ventilator 60 03/14/25 10:35 92 03/14/25 08:00 97.5 115/58 (77) Result Diagram: 03/14/25 0100 03/14/25 010 Exam General: Tracheostomy tube reinserted, sedated and put on mechanical ventilation. HEENT: Conjunctiva pink, Sclera clear, Mucus Membranes moist. Tracheostomy in place. Neck: Supple without masses and tenderness. Resp: Bilateral coarse breath sounds. Decreased breath sounds in the bilateral lower lung harmon. Heart: Regular Rate and rhythm, normal S1 and S2 without murmur, rub or gallop. Abdomen: Soft and non tender no organomegaly Extremities: No cyanosis,clubbing or edema. Skin: Warm and Dry. Neurology: Awake and tracking objects in his surrounding. Not commanding. Results Coagulation Studies Laboratory Tests Test 03/06/25 03:06 Prothrombin Time 12.5 SECONDS (9.0-12.0) H INR International Normalized Ratio 1.2 INR Activated Partial Thromboplast Time 28 SECONDS (22-32) Coagulation Comments VTE VTE Risk Score VTE Risk Score Reference Ranges: Score 0-1 = Low Risk (Aggressive mobilization; early ambulation; no VTE prophylaxis required) Score 2: Moderate Risk (Intermittent/Pneumatic Compression Device OR Lovenox/Heparin/Coumadin) Score 3-4: High Risk (Intermittent/Pneumatic Compression Device AND Lovenox/Heparin/Coumadin) Score > or = 5: Highest Risk (Intermittent/Pneumatic Compression Device AND Lovenox/Heparin/Coumadin) Assessment/Plan Assessment Acute hypoxemic respiratory failure: This has been interval worsening of oxygenation. Currently on 60% FiO2. Chest x-ray showing worsening pulmonary infiltrates. Patient has bilateral pleural effusions. Ventilated via tracheostomy. Vent settings AC/VC 16/400/5/60% FiO2. We will continue to diurese the patient. Pneumonia : On antibiotic therapy with piperacillin tazobactam. Vancomycin was discontinued. Septic shock: Off pressors. Cultures have remained without any growth. On Zosyn. Still on hydrocortisone 100 mg IV q.8 hours. Pleural effusion: Status post ultrasound-guided right chest thoracentesis. BJ on CKD stage 4 : Hypernatremia: Resolved with free water. Hypokalemia: Potassium 3.4 today. Continue to replace per protocols as well as potassium 40 mEq per tube q.6 hours. Paroxysmal atrial fibrillation: On amiodarone 200 mg per tube daily. Severe anemia Nutrition : Vital AF at 75 mL/hour. Code status: Full code DVT prophylaxis: SCDs Analgesia/sedation: Acetaminophen and morphine. Line/tube: PIV, central line, NG tube GI prophylaxis: Protonix Nutrition: Vital AF 1.2 at 75 mL/hour. Peg tube placed 03/12/2025. Prognosis: Guarded Disposition: Continue management in the intensive care unit. We will be discharged to the LTAC today. Plan Acute hypoxemic respiratory failure: This has been interval worsening of oxygenation. Currently on 70% FiO2. Chest x-ray showing worsening pulmonary infiltrates. Ventilated via tracheostomy. Vent settings AC/VC 16/400/5/70% FiO2. We will try to diurese the patient. Pneumonia : On antibiotic therapy with piperacillin tazobactam. Vancomycin was discontinued. Septic shock: Now off pressors. Cultures have remained without any growth. On Zosyn. Still on hydrocortisone 100 mg IV q.8 hours. Pleural effusion: Status post ultrasound-guided right chest thoracentesis. BJ on CKD stage 4 : Hypernatremia: Resolved with free water. Hypokalemia: Potassium 2.8 today. Paroxysmal atrial fibrillation: On amiodarone 200 mg per tube daily. Severe anemia Nutrition : Vital AF at 75 mL/hour. Code status: Full code DVT prophylaxis: SCDs Analgesia/sedation: Acetaminophen and morphine. Line/tube: PIV, central line, NG tube GI prophylaxis: Protonix Nutrition: Vital AF 1.2 at 75 mL/hour. Peg tube placed 03/12/2025. Prognosis: Guarded Disposition: Continue management in the intensive care unit. We will be discharged to the LTAC next week. Critical care time 35 minutes. Expected Outcome/Goals Expected Outcomes/Goals: maintain stable wt, tolerance to TF, bowel regularity, optimal skin integrity, BG 140-180 mg/dL LAKESHIA YUN MD Mar 14, 2025 11:34
[2025-03-14] MEDS: insulin glargine (Lantus) pen - multi-dose SQ SCH (11:53)
--- NOTE | 2025-03-14 12:05 | DISCHARGE SUMMARY ---
Discharge Summary Providers to CC ~ Discharge Summary Admission Diagnosis: PNEUMONIA, right lung atelectasis, right pleural effusion Admission Diagnosis Comment: Generalized weakness, pneumonia, complete right lung atelectasis, right pleural effusion Hospital Course DATE OF ADMISSION: 03/05/2025 DATE OF DISCHARGE:03/14/2025 Discharge Diagnosis\Comment: Please see admission diagnosis. Operations\Procedures: Bronchoscopy, right groin central line placement, removal of right groin central line and placement of a right internal jugular vein central line, left chest thoracentesis Consultants: Nephrology Complications: None Condition on DC: Stable Discharge Summary: Mrs. Devine is a 74-year-old female who was admitted to the hospital for generalized weakness with some electrolyte derangements that was severe i.e. severe hypokalemia and hypomagnesemia and was found to be hypoxic with a total opacification of the right lung thought to be due to atelectasis. Patient was started on antibiotic therapy. The patient underwent bronchoscopy and was admit vicky to PCU. Course was complicated by worsening respiratory status and patient was therefore transferred to the ICU where a size six cuffed Shiley tracheostomy was inserted to facilitate mechanical ventilation. Antibiotic therapy that time included Zosyn only. Vancomycin and levofloxacin were added. The patient's right lung atelectasis showed some partial improvement. Chest x-r ay was suggestive of a right pleural effusion and left lung consolidations.She underwent thoracentesis and about 650 mL of serous pleural fluid were removed. She was also notable to have an elevated creatinine. Last normal creatinine according to our records here was on the 06 December 2018. A creatinine during that time was 0.72. Creatinine today is 2.02. Nephrology has been consulted. We have been diuresing the patient and so far she has diuresed about 8 L but chest x-ray still shows pulmonary vascular congestion and a right pleural effusion. Echocardiogram showed an EF of 60-65% and therefore most likely has diastolic heart failure. Patient also developed hypernatremia that is improved with the free water. The patient initially required pressors for septic shock due to right lung pneumonia. She is off pressors now. She required colloid infusion i.e. albumin to stabilize her blood pressure. She also suffered decline in her hemoglobin and hematocrit and has received a total 4 units of packed red blood cells. Upper GI endoscopy with a doctor Bryant was nonrevealing. The patient had a PEG tube placement to facilitate nutritional support. Peg tube was placed after discussing the goals of care with her son who reported that her mother wanted everything done. Nutritional support was afforded via a Corpak. She is currently on Vital AF 1.2 at 65 mL/hour. She will transfer to [facility] today. She will continue on mechanical ventilation and we will try to wean her via pressure support trials and hopefully thereafter trach mist trials. *Problems/Diagnosis: (1) Acute respiratory failure (2) Acute kidney injury Status: Acute (3) Anemia Status: Acute Total Time Spent on D/C: > 30 Minutes Problem Qualifiers (1) Anemia: Qualified Codes: D64.9 - Anemia, unspecified LAKESHIA YUN MD Mar 14, 2025 11:51
[2025-03-14] MEDS: insulin regular, human U-100 10ml vial - multi-dose SQ SCH (13:56)
[2025-03-14] MEDS ORDERED: INSULIN LISPRO 100 UNIT/ML INSULN.PEN MULTI-DOSE SQ SCH (17:00)
--- NOTE | 2025-03-14 17:52 | PROGRESS NOTE ---
Daily Progress Note Providers to CC ~ Antibiotic Timeout Antibiotic Ordered?: No Subjective I evaluated the patient this morning prior to being transferred to LTAC- the patient was nonverbal and remains on 60% O2 via mechanical ventilator via tracheostomy. Objective Vital Signs Date Time Temp Pulse Resp B/P (MAP) Pulse Ox O2 Delivery O2 Flow Rate FiO2 03/14/25 14:00 62 25 147/73 (97) 94 03/14/25 13:26 60 03/14/25 13:00 Mechanical Ventilator 03/14/25 12:00 97.9 Result Diagram: 03/14/259903/14/2599 Gen. No acute distress - alert HEENT tracheostomy present Lungs clear to ascultation bilaterally, no wheezes rales or rhonchi appreciated Heart normal sinus rhythm no murmurs rubs or clicks noted Abdomen soft nontender bowel sounds are normoactive Lower extremities no clubbing cyanosis, nor edema appreciated bilaterally Coagulation Studies Laboratory Tests Test 03/06/25 03:06 Prothrombin Time 12.5 SECONDS (9.0-12.0) H INR International Normalized Ratio 1.2 INR Activated Partial Thromboplast Time 28 SECONDS (22-32) Coagulation Comments Problem\Assessment\Plan Patient is 74-year-old female with history of Chronic Pain, history of hypertension and diabetes.*CANCER*History of laryngectomy. patient had a history of throat cancer and had a trach placed in 2019. As per ER record. history of a trach who was brought in from home for weakness dyspnea and green sputum coming from her trach. The patient states she has been weak over the last 24 hours. # septic shock # Acute respiratory failure likely secondary to aspiration pneumonia on mechanical ventilator CT chest showed- Diffuse bilateral pulmonary airspace consolidation and ground- glass disease, likely combination of infection/ pneumonia, edema and aspiration. Interlobular septal thickening consistent with edema.Obstruction of the right lower lobe bronchus with possible stent. Moderate bilateral pleural effusions. Right pleural effusion appears loculated. Mediastinal, axillary lymphadenopathy which can be secondary to infectious, inflammatory, neoplastic etiologies. Soft tissue edema/ anasarca. Ascites fluid. Status post bronchoscopy with Dr. Barton 03/12 oxygen demand went up status post PEG tube placement, norepinephrine drip remains on IV Zosyn 03/13 oxygen demand remains increased from prior to PEG tube placement- norepinephrine drip has been discontinued the patient remains on IV Zosyn 03/14 oxygen demand is unchanged today blood pressure stable # BJ possibly secondary to to ATN Followed by Nephrology Dr. Zavaleta and is improving # nutrition On TPN Status post PEG tube placement by Gastroenterology Dr. Hankins on 03/12/2025 Other comorbidities include- Patient has severe anemia, hypokalemia, hypomagnesemia mildly elevated troponin BNP 10978. # atrial fibrillation Amiodarone drip has been discontinued On p.o. amiodarone via NG tube # hypernatremia Resolved Continue monitor daily labs # hypokalemia On potassium replacement protocol # DVT prophylaxis SQ heparin Note that the patient is transferred to [facility] this afternoon. Has a evaluated the patient. Date of Service: Mar 14, 2025 Billing Provider: GULSHAN LINDQUIST DO Common Visit Codes: [id number] INP/OBS CARE(HIGH) GULSHAN LINDQUIST DO Mar 14, 2025 17:52
== END 2025-03-14 14:26 | DRG 870 ==
LOC: ER 15:06 → ED HOLD 17:02 → EDBEDREQDT 03-06 18:25 → EDBEDREQTM 03-06 18:25 → EDBEDREQSVC 03-06 18:25 → PCU 3S 03-06 20:17 → CICU 2S 03-07 10:40
PROVIDERS: ADMIT Internal Medicine Critical Care Medicine; ATTEND Internal Medicine Critical Care Medicine
PROC: 5A1955Z Respiratory Ventilation, Greater than 96 Consecutive Hours (ICD-10-PCS; principal; 2025-03-05)
PROC: 30233N1 Transfusion of Nonautologous Red Blood Cells into Peripheral Vein, Percutaneous Approach (ICD-10-PCS; 2025-03-05)
PROC: 05HM33Z Insertion of Infusion Device into Right Internal Jugular Vein, Percutaneous Approach (ICD-10-PCS; 2025-03-05)
PROC: B543ZZA Ultrasonography of Right Jugular Veins, Guidance (ICD-10-PCS; 2025-03-05)
PROC: 0B9K8ZX Drainage of Right Lung, Via Natural or Artificial Opening Endoscopic, Diagnostic (ICD-10-PCS; 2025-03-06)
PROC: 02HV33Z Insertion of Infusion Device into Superior Vena Cava, Percutaneous Approach (ICD-10-PCS; 2025-03-08)
PROC: B548ZZA Ultrasonography of Superior Vena Cava, Guidance (ICD-10-PCS; 2025-03-08)
PROC: 0W993ZZ Drainage of Right Pleural Cavity, Percutaneous Approach (ICD-10-PCS; 2025-03-09)
PROC: 0DB68ZX Excision of Stomach, Via Natural or Artificial Opening Endoscopic, Diagnostic (ICD-10-PCS; 2025-03-10)
PROC: 0DH63UZ Insertion of Feeding Device into Stomach, Percutaneous Approach (ICD-10-PCS; 2025-03-12)
DX: A41.9 Sepsis, unspecified organism (principal); J69.0 Pneumonitis due to inhalation of food and vomit; J96.01 Acute respiratory failure with hypoxia; R65.21 Severe sepsis with septic shock; J18.9 Pneumonia, unspecified organism; J15.9 Unspecified bacterial pneumonia; I13.0 Hypertensive heart and chronic kidney disease with heart failure and stage 1 through stage 4 chronic kidney disease, or unspecified chronic kidney disease; N18.4 Chronic kidney disease, stage 4 (severe); E87.0 Hyperosmolality and hypernatremia; J91.8 Pleural effusion in other conditions classified elsewhere; N39.0 Urinary tract infection, site not specified; N17.9 Acute kidney failure, unspecified; J98.11 Atelectasis; I50.30 Unspecified diastolic (congestive) heart failure; G89.29 Other chronic pain; E87.6 Hypokalemia; E83.42 Hypomagnesemia; I48.0 Paroxysmal atrial fibrillation; D50.9 Iron deficiency anemia, unspecified; E11.22 Type 2 diabetes mellitus with diabetic chronic kidney disease; Z85.21 Personal history of malignant neoplasm of larynx; Z93.0 Tracheostomy status; Z85.819 Personal history of malignant neoplasm of unspecified site of lip, oral cavity, and pharynx; Z88.5 Allergy status to narcotic agent; Z79.899 Other long term (current) drug therapy
CPT/HCPCS: 31624; 31645; 32555; 36415; 36430; 36600; 43239; 43246; 71045; 71250; 76770; 80048; 80053; 80061; 80202; 81001; 82570; 82803; 82945; 82948; 83036; 83540; 83550; 83605; 83615; 83735; 83880; 83935; 83986; 84100; 84132; 84134; 84145; 84156; 84157; 84300; 84478; 84484; 85007; 85008; 85018; 85025; 85027; 85610; 85730; 86885; 86900; 86901; 86920; 87040; 87070; 87081; 87088; 87207; 88108; 88305; 89051; 93005; 93306; 94002; 94003; 94640; 94668; 94760; 94799; 96365; 99285; A4314; A4618; A4620; A4623; A4624; A4628; A6213; A6250; A6258; A6449; A7000; A7015; A7521; A7526; C1729; C1751; C1758; G0378; J0610; J0612; J0692; J1171; J1644; J1720; J1815; J1938; J1953; J1956; J2250; J2470; J2543; J2704; J3010; J3373; J3375; J3475; J3480; J3490; J7030; J7040; J7070; J7120; P9016; Q4081

== ENCOUNTER 2025-03-23 18:27 | Observation (INO) | payer MEDICARE ==
[~2025-03-23] VITALS: Ht 167.6 cm; Wt 73.0 kg
[~2025-03-23 18:27] MED LIST: CETI10TA14 PO; LISI5TAB22 PO; METF-438 PO; ROSU40TA89 PO
[2025-03-23 18:30] VITALS: BP 153/86; PULSE 51; RESP 19; O2SAT 98
--- NOTE | 2025-03-23 18:48 | Physician Documentation ---
History of Present Illness ~ Chief Complaint: See Chief Complaint Stated Complaint: DIALATED PUPILS Time Seen by MD: 18:39 Primary Medical Doctor: Saira Hernandez HPI Patient presents to the emergency room for evaluation of altered mental status. Since Friday, two days ago patient has been having intermittent seizures state they may no history of seizures. Some abnormal movements and pupils that dilate in his sluggish to react. Patient is at [facility] for rehab. She has been trached for a year in the trach is functioning normally. They did begin patient on antiseizure medications at sending facility. Medication Reconciliation Allergies: Coded Allergies: codeine (Verified Allergy, Severe, 03/05/25) Scheduled Cetirizine HCl (Cetirizine HCl), 1 TAB PO DAILY, (Reported) Lisinopril (Lisinopril), 1 TAB PO DAILY, (Reported) Metformin HCl (Metformin HCl), 1 TAB PO BIDWM, (Reported) Rosuvastatin Calcium (Rosuvastatin Calcium), 1 TAB PO DAILY, (Reported) Past Medical History Past Medical History: Chronic Pain, *CANCER* Past Surgical History: no surgical history Alcohol Use: None Drug Use: none Lives In: Home Review of Systems ROS All review of systems negative except as per HPI Physical Exam Vital Signs: Temperature: 96.8, Source: Axillary, Heart Rate: 66, Respiratory Rate: 18, BP: 151/86, Weight: 73.000 Physical Exam General: Patient is awake, alert, responding appropriately. Head: Normocephalic and atraumatic. Eyes: Conjunctival normal. EOMI. PERRL. ENT: Mucous membranes moist. Neck: Supple, trachea is midline. Trach in place and working Chest: Clear to auscultation bilaterally without rales, rhonchi, or wheezes. There is no accessory muscle use or retractions. Cardiac: RRR without murmurs, gallops, or rubs. Abd: Soft, nondistended, nontender, with normoactive bowel sounds. No guarding, rebound, or rigidity. Neuro: Cranial nerves 2-12 grossly intact Progress Results/Orders Results/Orders Orders - MARIO MCGINNIS MD Accucheck (03/23/25 18:45) Chest,Single View (03/23/25 18:45) Ct Head (03/23/25 20:20) Monitor (03/23/25 18:45) Saline Lock (03/23/25 18:45) Ventilator Settings (03/23/25 ) Cult Sputum + Gram Stain (03/23/25 18:45) Abg Current Settings (03/23/25 ) * May Place Rectal Tube * (03/23/25 20:38) Hs Troponin I W Calculations (03/23/25 20:48) Cult Urine + [place] Ct (03/23/25 21:17) Page Hospitalist (03/23/25 21:25) Fill Out Med Reconciliation (03/23/25 21:25) Completed Orders - MARIO MCGINNIS MD Electrocardiogram (03/23/25 18:45) Cbc/Diff (03/23/25 18:45) Chest,Single View (03/23/25 18:45) Ct Head (03/23/25 20:20) Ammonia (03/23/25 18:45) Hs Troponin I W Calculations (03/23/25 18:45) CMP (03/23/25 18:45) LA (03/23/25 18:45) Procalcitonin (03/23/25 18:45) MG (03/23/25 18:45) Ua W/Microscopic, Cult If Ind (03/23/25 20:32) Vital Signs 03/23/25 03/23/25 03/23/25 03/23/25 18:30 18:32 18:59 20:25 Temp 96.8 Pulse 51 66 53 49 Resp 19 18 18 18 B/P (MAP) 151/86 153/86 (108) Pulse Ox 98 96 97 FiO2 30 30 03/23/25 03/23/25 03/23/25 20:29 20:50 21:09 Pulse 46 45 Resp 13 18 10 B/P (MAP) 152/79 (103) Pulse Ox 97 97 FiO2 30 30 Laboratory Tests Test 03/23/25 18:51 03/23/25 19:01 03/23/25 19:05 03/23/25 20:32 Glucometer 139 H White Blood Count 11.4 H Red Blood Count 3.79 L Hemoglobin 11.4 L Hematocrit 36.0 Mean Corpuscular Volume 94.9 Mean Corpuscular Hemoglobin 30.0 Mean Corpuscular Hemoglobin Concent 31.6 L Red Cell Distribution Width 21.7 H Platelet Count 261 Mean Platelet Volume 9.7 Neutrophils (%) (Auto) 77.6 H Lymphocytes (%) (Auto) 13.9 L Monocytes (%) (Auto) 7.5 Eosinophils (%) (Auto) 0.8 Basophils (%) (Auto) 0.2 Neutrophils # (Auto) 8.8 H Lymphocytes # (Auto) 1.6 Monocytes # (Auto) 0.9 Eosinophils # (Auto) 0.1 Basophils # (Auto) 0.0 CBC Comment Sodium Level 142 Potassium Level 4.7 Chloride Level 103 Carbon Dioxide Level 34.7 H Anion Gap 4 L Blood Urea Nitrogen 44 H Creatinine 1.77 H Estimated GFR/1.73 m2 28 BUN/Creatinine Ratio 24.9 H Glucose Level 152 H Lactic Acid Level 1.2 Calcium Level 8.0 L Magnesium Level 2.3 Total Bilirubin 0.4 Aspartate Amino Transf (AST/SGOT) 69 H Alanine Aminotransferase (ALT/SGPT) 124 H Alkaline Phosphatase 86 Ammonia < 10 L Troponin I High Sensitivity 82 *H Total Protein 6.2 L Albumin 1.9 L Globulin 4.3 Albumin/Globulin Ratio 0.4 L Procalcitonin < 0.05 Chemistry Comments Blood Gas Specimen Type Arterial Blood Gas Puncture Site Lr O2 Saturation 96.8 Arterial Blood pH (Temp corrected) 7.547 H Arterial Blood pCO2 (Temp correct) 33.2 Arterial Blood pO2 (Temp corrected) 84.2 Arterial Blood PO2/FiO2 Ratio 2.99 Arterial Blood HCO3 28.4 H Arterial Blood Base Excess 5.7 H Arterial Blood Oxyhemoglobin 95.1 Arterial Blood Carboxyhemoglobin 1.5 Arterial Blood Methemoglobin 0.3 Arterial Blood Deoxyhemoglobin 3.1 Jared Test Modified Blood Gas Hemoglobin 12.0 Blood Gas Temperature 36.0 Blood Gas Modality Cpap FiO2 30.0 Blood Gas PEEP 5 Blood Gas Critical Value Called To Kaleb mcginnis Urine Specimen Description Perez [facility] Urine Color Straw Urine Clarity Cloudy Urine pH 8.0 Urine Specific [place] 1.020 Urine Protein Trace Urine Glucose (UA) Negative Urine Ketones Negative Urine Occult Blood Trace-intact Urine Nitrite Negative Urine Bilirubin Negative Urine Urobilinogen 0.2 Urine Leukocyte Esterase Moderate H Urine RBC 0-2 Urine WBC 5-10 H Urine Squamous Epithelial Cells None seen Urine Bacteria Few Urine Mucus None seen Urine Yeast Many Urine Culture Indicated Indicated Volume Urine Centrifuged 10 ml Urine Comment Test 03/23/25 21:03 Troponin I High Sens Percent Delta 14 Troponin I Hi Sens Absolute Change -12 Medical Decision Making Additional information obtaine: old records Findings Patient presents to the emergency room for evaluation that has per HPI. Differentials include but are not limited to seizure, metabolic encephalopathy, intracranial bleed, metabolic disturbances therefore emergent labs and imaging indicated. Concern that patient is having multiple seizures a day. We will admit patient for seizure workup as per neurologist instructions Differential Dx:Considerations: Include: dehydration, Delirium Tr., DKA, encephalopathy, hypercalcemia, HHNC, hypoglycemia, hypernatremia, hyponatremia, hypoxia, postictal, closed head injury, C-spine injury, CVA, mass lesion, subarachnoid hemorrhage, drug overdose, encephalopathy, ETOH intoxication, medication toxicity, infection - meningitis, infection - sepsis, infection - UTI, heart failure, renal failure, respiratory failure, hyperthermia, hypothermia, other Departure Admitted to Inpatient Unit: yes, to hospitalist Impression: Primary Impression: New onset seizure Condition: Guarded Referrals: NO PRIMARY CARE PROVIDER (PCP) Signature Scribe Signature: No scribe Attestation: The note accurately reflects work and decisions made by me.Mario Mcginnis MD 03/23/25 21:37 MARIO MCGINNIS MD Mar 23, 2025 18:48
[2025-03-23 19:11] LABS: ABG BASE EXCESS 5.7 mmol/L (-2.0-3.0); ABG HCO3 28.4 mmol/L (21.0-28.0); ABG OXYGEN SATURATION 96.8 % (94.0-98.0); ABG PCO2 (T) 33.2 mmHg (32.0-45.0); ABG PH (T) 7.547 (7.350-7.450); ABG PO2 (T) 84.2 mmHg (83.0-108.0); ALLEN'S TEST Modified; FCOHb 1.5 % (0.5-1.5); FHHb 3.1 % (0.0-5.0); FIO2 30.0 mmHg/%; FMetHb 0.3 % (0.0-1.5); FO2Hb 95.1 % (94.0-98.0); MODE Cpap; PATIENT TEMPERATURE 36.0; PEEP 5 cm H2O; TOTAL HEMOGLOBIN 12.0 G/dl (12.0-16.0)
--- NOTE | 2025-03-23 19:13 | ELECTROCARDIOGRAPH REPORT ---
[facility] Test Date: 2025-03-23 Test Time: 19:09:11 Pat Name: NIKKI GUERRERO Department: [facility] Patient ID: [facility]-[id number] Room: ED 5 Gender: F News Video Editor: : 1950 Requested By: CARRI BOLANOS Order Number: [id number] Reading MD: Dr. Nikko Carl Measurements Intervals [place] Rate: 49 P: 59 WI: 140 QRS: 55 QRSD: 80 T: 0 QT: 521 QTc: 471 Interpretive Statements Sinus bradycardia Low voltage, extremity and precordial leads Electronically Signed On 03-29-2025 20:45:[address] Nikko Carl Please click the below link to view image of tracing.
[2025-03-23 19:15] LABS: MEAN PLATELET VOLUME 9.7 FL (7.4-10.4); RED CELL DISTRIBUTION WIDTH 21.7 % (11.5-14.5)
[2025-03-23 19:33] LABS: LACTIC SEPSIS 1.2 MMOL/L (0.4-2.0)
--- NOTE | 2025-03-23 19:43 | RADIOLOGY REPORT ---
CHEST RADIOGRAPH Indication: aloc Technique: Single frontal view of the chest was obtained COMPARISON: DI CHEST,SINGLE VIEW on DOS: 03/14/25, DI CHEST,SINGLE VIEW on DOS: 03/13/25, DI CHEST,SINGLE VIEW on DOS: 03/12/25, DI CHEST,SINGLE VIEW on DOS: 03/11/25, DI CHEST,SINGLE VIEW on DOS: 03/10/25 FINDINGS: Lines and Tubes: Tracheostomy tube in place. Lungs: Probable mild interstitial pulmonary edema Pleura: Small right pleural effusion. No pneumothorax. Cardiomediastinal contours: Unremarkable Bones: Unremarkable IMPRESSION: 1. Probable mild interstitial pulmonary edema. 2. Small right pleural effusion.
[2025-03-23 20:25] VITALS: PULSE 49; RESP 18; O2SAT 97
[2025-03-23 20:31] LABS: CREATININE 1.77 MG/DL (0.40-0.90); TOTAL CARBON DIOXIDE 34.7 MMOL/L (24-32); eCRCL 27 ML/MIN; eGFR 28 ML/MIN
--- NOTE | 2025-03-23 20:49 | RADIOLOGY REPORT ---
Procedure: [facility] Study Date and Requested Time: 03/23/2025 08:09 PM History: aloc Comparison: None Dose: CTDI: 64.06 mGy DLP: 1510.62 mGycm Technique: Multiplanar images obtained through the brain without intravenous contrast. Findings: Moderate diffuse brain atrophy. [id number] chronic small-vessel ischemic changes. No hemorrhages, masses, mass effect, midline shift, herniation or cytotoxic edema following a large vascular territory. No intra-axial or extra-axial fluid collections. No evidence of hydrocephalus. The basal cisterns are patent. The pituitary gland, sella and parasellar regions are unremarkable. The cerebellar tonsils are in normal position. The cerebellum is unremarkable. Bilateral lens replacement. Otherwise, orbits and globes are unremarkable. The paranasal sinuses are clear. Opacification of bilateral mastoids. There are no worrisome calvarial lesions. Suboccipital and right infra auricular moderate subcutaneous fat edema. Impression: No evidence of acute intracranial abnormality. Bilateral mastoid disease. Suboccipital and right infra auricular moderate subcutaneous fat edema.
[2025-03-23 21:01] LABS: LEUKOCYTE ESTERASE ,URINE MODERATE (Neg); NITRITES, URINE NEGATIVE (Neg); OCCULT BLOOD,URINE TRACE-INTACT (Neg)
[2025-03-23 21:09] VITALS: BP 158/82; PULSE 45; RESP 10; O2SAT 97
[2025-03-23 21:15] LABS: UA COLLECTION TYPE FOLEY CATH
[2025-03-23 21:16] LABS: MUCUS STRANDS NONE SEEN /LPF (Neg); SQUAMOUS EPITHELIAL CELL,UR NONE SEEN /LPF (FEW); YEAST MANY /HPF (NEGATIVE)
[2025-03-23] MEDS ORDERED: mag hydrox/Alum hydrox/simeth 30ml oral suspension PO PRN (21:50)
[2025-03-23] MEDS ORDERED: potassium Cl 20 mEq SR tablet PO PRN ×2 (21:50)
[2025-03-23] MEDS ORDERED: magnesium Cl slow-release 64mg tablet PO PRN (21:50)
[2025-03-23] MEDS ORDERED: ondansetron 4mg rapidly disintigrating tab PO PRN (21:50)
[2025-03-23] MEDS ORDERED: magnesium hydroxide 30ml (MOM) UD suspension PO PRN (21:50)
[2025-03-23] MEDS ORDERED: magnesium sulf-water 4G/100mL 100 ML IV PRN (21:50)
[2025-03-23] MEDS ORDERED: potassium Cl 40MEQ/1/2NS 520ml 520 ML IV PRN (21:50)
[2025-03-23] MEDS ORDERED: ondansetron/PF 4mg/2ml inj IV PRN (21:50)
[2025-03-23] MEDS ORDERED: magnesium sulf-water 2g/50mL 50 ML IV PRN (21:50)
[2025-03-23] MEDS ORDERED: AMIO200T76 PEG (22:12)
[2025-03-23] MEDS ORDERED: [UNRECOGNIZED DRUG - CODE] SQ (22:12)
[2025-03-23] MEDS ORDERED: MIDO5TAB4 GT (22:22)
[2025-03-23] MEDS ORDERED: INSU100V64 SQ (22:22)
[2025-03-23] MEDS ORDERED: CARB15DR LEFTEYE (22:22)
[2025-03-23] MEDS ORDERED: CARB15DR RIGHTEYE (22:22)
[2025-03-23] MEDS ORDERED: ROSU40TA GT (22:22)
[2025-03-23] MEDS ORDERED: KEP500T GT (22:22)
[2025-03-23] MEDS ORDERED: PANT40VI2 IV (22:22)
[2025-03-23] MEDS ORDERED: INSU100V9 SQ (22:22)
[2025-03-23 22:53] VITALS: BP 147/72; PULSE 50; RESP 13; O2SAT 97
--- NOTE | 2025-03-23 23:04 | [facility] CONSULT REPORT ---
[facility] Procedure Note [facility] Procedure Note Consult [facility] Note # Demographics Consult Type: General Neurology Patient Location: Emergency Room First Name: Zee Last Name: Sybil Date of : 1950 Age: 74 Gender: Female Facility: [facility] Time of Initial Page (): 03/23/2025 21:06 First Contact with Site (): 03/23/2025 21:06 # HPI Chief Complaint: - seizure History: 74 yo F p/w seizure like activities in the past 3 days. Reportedly she had episodes of blanking out, involuntary movement with dilated and sluggish pupils. She had multiple episodes since Friday. She was started on Keppra at her facility. She is trach dependent. # Exam Mental Status: - awake - follows simple commands (stick tongue out, close eyes) Language: Trached Cranial Nerves: - extra ocular movements intact - PERRLA - no facial droop Motor: Moves all 4 limbs spontaneously # ROS Unable to obtain ROS: - non-verbal # Data Head CT: - no bleed # Assessment Impression: - Seizure # Plan Labs: - comprehensive metabolic panel - CBC Imaging: (urgency: routine): - MRI Brain without contrast Diagnostic Test: - EEG Medication: Load Keppra 60 mg/kg, then 1g BID Other: - If patient has any neurological deterioration please call me back immediately - seizure precautions - telemetry monitoring - I have discussed my recommendations with the referring provider - Neurology outpatient referral # Logistics Attestation of consult completion: The patient is located at: [facility]. Facility staff participated in the visit. I performed this telemedicine visit from my offsite office utilizing interactive 2 way audio and visual telecommunication technology at the request of the onsite emergency room provider. Total time spent in telemedicine encounter: I spent 19 minutes reviewing cli nical data and/or imaging, obtaining history, examining the patient, communicating with the onsite care team, and in preparation of this report. # Demographics First Name: Zee Last Name: Sybil Facility: [facility] Electronically signed at 03/23/2025 23:03 () by Esteban Garcia MD Neuro Consult Order placed for: Yes ESTEBAN GARCIA MD Mar 23, 2025 23:04
--- NOTE | 2025-03-23 23:13 | HISTORY AND PHYSICAL-Residence ---
History & Physical Providers to CC Resident Creating Document: JOSHShunNATALIA, RES ~ History of Present Illness Primary Medical Doctor: Saira Hernandez Reason for Admit\Complaint: New Onset of Seizures, Metabolic encephalopathy, UT History of Present Illness This is an 74 year-old female with a history of throat cancer and prior tracheostomy, who presented to the hospital with new-onset seizures. The patient is currently on mechanical ventilation via a tracheostomy tube and is receiving G tube feedings. She has had the tracheostomy for approximately one year, and it is reported to be functioning normally. Per Emergency Department documentation, the patient was brought in for evaluation of altered mental status. Since Friday, she has been experiencing intermittent seizures. There is no known prior history of seizures. Observed symptoms include abnormal movements and pupils that are dilated and sluggish to react. The patient was transferred from a [facility], where she had already been started on anti-seizure medications prior to arrival. History is limited due to the patient's altered mental status. Teleneurologist was consulted and they recommoned to start patient on Kepra Allergies: Coded Allergies: codeine (Verified Allergy, Severe, 03/05/25) Home Medications Home Medications Active Reported Crestor* (Rosuvastatin Calcium) 40 Mg Tablet 1 Tab GT DAILY 30 Days Protonix Iv (Pantoprazole Sodium) 40 Mg Vial 40 Mg IV BID Refresh Tears (Artificial Tears) 0.5 % Drops 1 Drop LEFTEYE Q6H 30 Days Refresh Tears (Artificial Tears) 0.5 % Drops 1 Drop RIGHTEYE Q6H 30 Days Midodrine HCl 5 Mg Tablet 10 Mg GT Q8H PRN 30 Days Keppra (Levetiracetam) 500 Mg Tablet 1 Tab GT BID 30 Days Humulin R 3 Ml * (Insulin Human Regular) 100 Unit/Ml Vial 0 SQ SLIDING SCALE Lantus (Insulin Glargine,Hum.rec.anlog) 100 Unit/Ml Vial 5 Unit SQ HS Heparin Sod 5,000 Unit/ml Syrg (Heparin Sodium,Porcine/Pf) 5,000 Unit/Ml Syringe 1 Ml SQ BID Cordarone (Amiodarone HCl) 200 Mg Tablet 200 Mg PEG DAILY Past Medical History Past Medical History Atrial fibrillation Type 2 diabetes mellitusr Chronic pain. Hypertension. History of laryngeal cancer status post tracheostomy. Past Surgical History Surgical History Comment S/p tracheostomy due to laryngeal cancer. Past Social History Alcohol Use: None Drug Use: None Lives In: Home ROS Unable to obtain: altered mental status Exam Vitals: Vital Signs Date Time Temp Pulse Resp B/P (MAP) Pulse Ox O2 Delivery O2 Flow Rate FiO2 03/23/25 21:51 46 12 149/75 (99) 96 30 03/23/25 18:32 96.8 General: General: Patient is on mechanical ventilation through tracheostomy tube. HEENT: Conjunctive are pale, sclerae clear, no icterus, pupil is equal in both sides, reactive to light, no ear discharge, no pharyngeal erythema or an edema. Neck: Supple, no adenopathy, thyromegaly. Trachea is midline. No JVD. Presence of tracheostomy tube in the midline of the neck. Chest: Respiratory: Vesicular breath sounds. No ronchi, crepitus or wheezing. Cardiovascular: S1-S2 regular sinus rhythm and, regular rate, no gallops, no rubs, no murmurs Abdomen: No visible distention, Bowel sounds present on auscultation, on palpation: soft, nontender, no guarding, no rigidity. G-tube in place, rectal tube, Perez is in place Extremities: No pitting edema bilaterally, capillary refill intact, peripheral pulsations are intact on both sides Neurologic: No further neurological assessment done due to patient condition Negative Babinski. Skin: Warm and dry. Diagnostic Data Last Recorded Lab Results: 03/24/25 03003/24/25 030 Advance Care Planning Advanced Care plannin - 30 Minutes Additional Plan 74 years old female is currently evaluated for acute metabolic encephalopathy and new onset seizure Metabolic Encephalopathy Possible 2/2 UTI DD: Stroke cannt be ruled out Post Seizure Confusion- History is limited, Per ED patient is on kepra for Seizures Wbc-11.4, UA-+Leukocyte esterase, WBC 5-10 Chest x-ray Probable mild interstitial pulmonary edema.Small right pleural effusion. Head CT-No evidence of acute intracranial abnormality. Started Rocephin 1 g IV daily, follow up with urine culture sensitive Follow up with TSH/procalcitonin/ESR/HbA1c New Onset Seizures Vitals are stable, patient is afebrile Patient was transferred from [facility], where she had episodes of she is and was started on Keppra Tele neuro consulted and recommended to start Keppra loading dose of 60 mg per kg body weight and 1 g daily, and Neurology outpatient referral Head CT ruled out any intracranial abnormality Follow up with HbA1c/B12 Follow up with MRI head/EEG Continue monitoring patient in telemetry Congestive heart failure with preserved ejection fraction-LVEF is 60-65%. Not in decompensation Echocardiogram on 03/08/2025-shows LVEF 60-65% Chest x-ray Probable mild interstitial pulmonary edema.Small right pleural effusion. Pro [id number] Continue Monitor patient in telemetry Type 2 diabetes mellitus CKD Stage 4 Patient history of type 2 diabetes mellitus Started on medium dose hyperglycemia/hypoglycemia protocol Continue monitoring CMP Sinus bradycardia History of Atrial fibrillation Patient takes amiodarone at home, we are currently holding amiodarone in view of bradycardia Transaminitis Follow up with hepatitis panel Mild protein malnutrition Nutrition consulted and ordered ensure and live Code Status: Full by default DVT prophylaxis: Heparin subQ Analgesia/Sedation: Morphine Line/tube: Peripheral GI ppx: Protonix PT: Ordered Prognosis: Guarded Disposition: Patient will be monitored in ortho with telemetry Natalia Carrizales PGY1-Internal Medicine Resident Date of Service: Mar 23, 2025 Billing Provider: JERRY MAYEN MD Addendum Attestation I agree with the residents assessment and plan as below: patient with chronic resp failure admitted with uti and seizure Plan: load with keppra and continue bid ceftriaxone for uti repeat echo hold amiodarone follow up mri and EEG CCT 56 min using HIPPA compliant A/V technology NATALIA CARRIZALES, RES Mar 23, 2025 23:13 JERRY MAYEN MD Mar 24, 2025 09:36
[2025-03-23] MEDS ORDERED: LEVETIRACETAM IV ONE (23:20)
[2025-03-23] MEDS ORDERED: NORMAL SALINE IV ONE (23:20)
[2025-03-23 23:26] LABS: URINE AMPHETAMINE SCREEN NEGATIVE (Neg); URINE BARBITUATE SCREEN NEGATIVE (Neg); URINE BENZODIAZEPINES SCREEN POSITIVE (Neg); URINE CANNABINOID SCREEN NEGATIVE (Neg); URINE COCAINE SCREEN NEGATIVE (Neg); URINE METHADONE SCREEN NEGATIVE (Neg); URINE OPIATE SCREEN NEGATIVE (Neg); URINE PHENCYCLIDINE SCREEN NEGATIVE (Neg)
[2025-03-24] VITALS (7 sets, daily range): BP systolic 139–151; BP diastolic 69–76; PULSE 47–52; RESP 14–17; TEMP 96.8; O2SAT 96–98
[2025-03-24] MEDS: CefTRIAXone/D5W-Rocephin 1gm 50 ML IV SCH (00:15)
[2025-03-24 00:40] LABS: PRO BRAIN NATRIURETIC PEPTIDE 6096.0 PG/ML (0-125)
[2025-03-24] MEDS ORDERED: levetiracetam-NACL1000mg/100ml 100 ML IV SCH ×6 (00:45→20:00)
[2025-03-24] MEDS: levetiracetam-NACL1000mg/100ml 100 ML IV SCH (00:50)
[2025-03-24] MEDS: LevETIRAcetam 1,000MG in NS 100ml IV.SOLN premix IV SCH (01:06)
[2025-03-24] MEDS ORDERED: DEXTROSE 15 GM of carb/4 tabs (each vial/BOTTLE has 4 tablets) PO PRN ×2 (03:15)
[2025-03-24] MEDS ORDERED: dextrose 50%-water 50ml dispensing syringe IV PRN ×2 (03:15)
[2025-03-24] MEDS ORDERED: glucagon, human recombinant 1mg kit SUBCUT PRN (03:15)
[2025-03-24 03:21] LABS: MEAN PLATELET VOLUME 9.6 FL (7.4-10.4); RED CELL DISTRIBUTION WIDTH 20.9 % (11.5-14.5)
[2025-03-24 03:37] LABS: CREATININE 1.62 MG/DL (0.40-0.90); TOTAL CARBON DIOXIDE 36.6 MMOL/L (24-32); eCRCL 29 ML/MIN; eGFR 31 ML/MIN
[2025-03-24] MEDS: INSULIN LISPRO 100 UNIT/ML INSULN.PEN MULTI-DOSE SQ SCH (07:00)
[2025-03-24] MEDS: docusate sod 100mg capsule PO SCH (07:17)
[2025-03-24] MEDS: K and/or MAG REPLACEMENT MC SCH (07:19)
[2025-03-24] MEDS: heparin, porcine 5000 units/ml vial SQ SCH (07:52)
[2025-03-24] MEDS: ENSURE CLEAR - 237ml PO SCH (08:00)
[2025-03-24] MEDS ORDERED: levetiracetam inj 750 MG in normal saline 100ml IV soln 100 ML IV SCH (08:00)
[2025-03-24] MEDS: levoFLOXACIN-Levaquin 750MG/D5 150 ML IV SCH (08:27)
--- NOTE | 2025-03-24 11:26 | DISCHARGE SUMMARY ---
Discharge Summary Providers to CC ~ Discharge Summary Admission Diagnosis: New onsent seizure, UTI Hospital Course DATE OF ADMISSION: 03/23/25 DATE OF DISCHARGE: 03/24/25 Discharge Diagnosis\\Comment: Seizures, new onset UTI Metabolic encephalopathy 2/2 above Chronic diastolic heart failure, not in acute decompensation IDDM CKD Stage 4 Sinus bradycardia Atrial fibrillation Mild protein malnutrition Operations\\Procedures: None Consultants: Teleneurologist Dr. Barrie Momin Outpatient Case Manager Yung Llanes Complications: None Condition on DC: Stable for transfer Discharge Summary: History of Present Illness From H&P: "This is an 74 year-old female with a history of throat cancer and prior tracheostomy, who presented to the hospital with new-onset seizures. The patient is currently on mechanical ventilation via a tracheostomy tube and is receiving G tube feedings. She has had the tracheostomy for approximately one year, and it is reported to be functioning normally. Per Emergency Department documentation, the patient was brought in for evaluation of altered mental status. Since Friday, she has been experiencing intermittent seizures. There is no known prior history of seizures. Observed symptoms include abnormal movements and pupils that are dilated and sluggish to react. The patient was transferred from a [facility], where she had already been started on anti-seizure medications prior to arrival. History is limited due to the patient's altered mental status. Teleneurologist was consulted and they recommoned to start patient on Keppra." Hospital Course Case was consulted with teleneurologist with recommendation for Keppra loading dose followed by maintenance dose. Patient did not experience further complications throughout the entire hospital stay and remained clinically and hemodynamically stable. Patient is discharged back to [facility] for continued management. Physical Exam General: Generalized weakness, awake and alert, NAD HEENT: Normocephalic, PERRLA Neck: Tracheostomy in place, on ventilator Chest: Clear to auscultation bilaterally Cardiovascular: RRR, S1&S2 GI: Soft and nontender Extremities: No cyanosis/clubbing/or edema DUPLICATING MACHINE MECHANIC: No focal deficits Musculoskeletal: No paraspinal muscle tenderness, no muscle spasm Skin: Warm and intact *Problems/Diagnosis: (1) New onset seizure Status: Acute Total Time Spent on D/C: > 30 Minutes Date of Service: Mar 24, 2025 Billing Provider: DEBORAH NUR TRANSPORTATION OPERATIONS MANAGER Common Visit Codes: NOT BILLABLE DEBORAH NUR TRANSPORTATION OPERATIONS MANAGER Mar 24, 2025 11:26
[2025-03-25 06:02] LABS: HBSAG SCREEN Negative (Negative); HEP B CORE AB, IGM Negative (Negative); HEPATITIS C VIRUS ANTIBODY Non Reactive (Non Reactive)
== END 2025-03-24 13:00 ==
LOC: ER 18:28 → ED HOLD 21:57 → INTOOBSV 21:57
PROVIDERS: ADMIT Internal Medicine; ATTEND Nurse Practitioner Family
DX: R56.9 Unspecified convulsions (principal); N39.0 Urinary tract infection, site not specified; R41.82 Altered mental status, unspecified; R53.1 Weakness; R60.1 Generalized edema; Z93.1 Gastrostomy status; Z93.0 Tracheostomy status; Z85.819 Personal history of malignant neoplasm of unspecified site of lip, oral cavity, and pharynx; Z79.899 Other long term (current) drug therapy; Z98.890 Other specified postprocedural states
CPT/HCPCS: 70450; 80053; 80305; 81001; 82140; 82550; 82803; 82948; 83605; 83735; 83880; 84145; 84439; 84443; 84484; 85018; 86140; 86705; 86803; 87040; 87340; 93005; 94760; 96365; 96366; 96368; 96372; 96375; 99285; G0378; J1815; J2470; 36415; 36600; 71045; 85025; 85651; 87070; 87088; 87522; 94002; 94003; 94799; J0696; J1644; J1953; J1956